=== PATIENT | female | born 1955 | race Caucasian/White ===

== ENCOUNTER 2018-03-04 15:00 | Observation (INO) | payer MEDICARE | END 2018-03-05 11:36 | disposition home or self-care (01) | LOC: ICU 15:00 ==

== ENCOUNTER → 2018-06-19 | Outpatient (CLI) | payer MEDICARE ==
[~2018-06-19] MED LIST: AMLO5TAB9 PO; SIMV20TA3 PO; STL80T PO; TRAZ-189 PO; TRAZ-190 PO; WARF-48 PO
[2018-06-19 10:08] LABS: CHOLESTEROL 194 MG/DL (< 200); HDL CHOLESTEROL 58 MG/DL (40-60); TRIGLYCERIDES 98 MG/DL (<150); VLDL CHOLESTEROL 20 MG/DL (5-40)
== END ==
LOC: LAB 09:25
PROVIDERS: ATTEND Internal Medicine Cardiovascular Disease
DX: E78.00 Pure hypercholesterolemia, unspecified (principal)
CPT/HCPCS: 36415; 80061

== ENCOUNTER 2019-03-15 12:30 | Outpatient (CLI) | payer MEDICARE ==
[~2019-03-15] VITALS: Ht 165.1 cm; Wt 56.8 kg
[~2019-03-15 12:30] MED LIST changes: +SIMV20TA26 PO; -SIMV20TA3 PO; -TRAZ-189 PO; +TRZ50T PO
== END 2019-03-15 14:47 | disposition home or self-care (01) ==
LOC: PREOP 12:30
PROVIDERS: ATTEND Surgery
DX: Z01.818 Encounter for other preprocedural examination (principal)

== ENCOUNTER → 2019-06-17 | Outpatient (CLI) | payer MEDICARE, MEDICAID ==
[~2019-06-17] MED LIST changes: -TRAZ-190 PO; +TRAZ-227 PO
--- NOTE | 2019-06-17 10:04 | Diagnostic Imaging Report ---
Indication: Low back pain Lumbar spine AP and lateral views of lumbar spine shows normal vertebral body height and alignment. Disc spaces are normal. Posterior elements are unremarkable. IMPRESSION: Negative lumbar spine Dictated by: Dictated on workstation # [id number]
== END ==
LOC: RAD FS 09:44
PROVIDERS: ATTEND Nurse Practitioner
DX: M54.5 Low back pain (principal)
CPT/HCPCS: 72100

== ENCOUNTER → 2019-07-08 | Outpatient (CLI) | payer MEDICARE, MEDICAID ==
--- NOTE | 2019-07-08 11:30 | Diagnostic Imaging Report ---
INDICATION: Capsule endoscopy. TIME OF EXAM: 10:36 AM No definite free air is seen. Bowel gas pattern is nonobstructed. No definite radiopaque capsule is seen from capsule endoscopy. There is moderate stool in the right colon and transverse colon. No pathologic calcifications are seen. IMPRESSION: Moderate stool. No foreign body is detected. Dictated by: Dictated on workstation # [id number]
== END ==
LOC: RAD 10:17
DX: I48.0 Paroxysmal atrial fibrillation (principal)
CPT/HCPCS: 74019

== ENCOUNTER 2019-07-15 19:14 | Emergency (ER) | payer MEDICARE, MEDICAID ==
[~2019-07-15] VITALS: Ht 167 cm; Wt 56.0 kg
--- OUTSIDE RECORDS SUMMARY | 2019-07-15 19:19 | XMS REPORT | Continuity of Care Document ---
Author Organization Unknown Address Unknown Phone Unavailable Allergies Active Description Code Type Severity Reaction Onset Reported/Identified Relationship to Patient Clinical Status Yes codeine [id number] Drug Allergy Mild N/A 03/04/2018 Yes diphenhydramine [id number] D rug Allergy Mild N/A 03/04/2018 Yes morphine [id number] Drug Allergy Mild N/A 03/04/2018 Medications There is no data. 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 00 PURE HYPERCHOLESTEROLEMIA, UNSPECIFIED 06/22/2018 DEE DEE TINEO, PRINCESS Dao Ot E78. 00 PURE HYPERCHOLESTEROLEMIA, UNSPECIFIED 03/14/2019 DEE DEE TINEO, PRINCESS Dao Ot E78. 00 PURE HYPERCHOLESTEROLEMIA, UNSPECIFIED 03/15/2019 ROSIO MENDIOLA, [place] B Ot Z01.8 18 ENCOUNTER FOR OTHER PREPROCEDURAL EXAMIN 03/21/2019 DEE DEE TINEO, PRINCESS Dao Ot E78. 00 PURE HYPERCHOLESTEROLEMIA, UNSPECIFIED 03/21/2019 ROSIO M[place], [place] B Ot D12.3 BENIGN NEOPLASM OF TRANSVERSE COLON 03/21/2019 [place] , [place] B Ot D12.4 BENIGN NEOPLASM OF DESCENDING COLON 03/21/2019 [place] , [place] B Ot E78.5 HYPERLIPIDEMIA, UNSPECIFIED 03/21/2019 [place] , [place] B Ot F17.2 10 NICOTINE DEPENDENCE, CIGARETTES, UNCOMPL 03/21/2019 ROSIO MENDIOLA, [place] B Ot I11.0 HYPERTENSIVE HEART DISEASE WITH HEART FA 03/21/2019 TABCHEYENNE MENDIOLA, [place] B Ot I25.1 0 ATHSCL HEART DISEASE OF [place] CORONARY 03/21/2019 [place] , [place] B Ot I48.9 1 UNSPECIFIED ATRIAL FIBRILLATION 03/21/2019 ROSIO MENDIOLA, [place] B Ot I50.9 HEART FAILURE, UNSPECIFIED 03/21/2019 [place] , [place] B Ot K57.3 0 DVRTCLOS OF LG INT W/O PERFORATION OR AB 03/21/2019 ROSIO M[place]A, [place] B Ot K63.5 POLYP OF COLON 03/21/2019 ROSIO MENDI[place]A, [place] B Ot K64.8 OTHER HEMORRHOIDS 03/21/2019 TABCHEYENNE MENDI[place]A, [place] B Ot M19.9 0 UNSPECIFIED OSTEOARTHRITIS, UNSPECIFIED 03/21/2019 [place] , [place] B Ot Z12.1 1 ENCOUNTER FOR SCREENING FOR MALIGNANT NE 03/21/2019 TABCHEYENNE MENDIOLA [place] B Ot Z79.0 1 [place] NET (CURRENT) USE OF ANTICOAGULANT 03/21/2019 TABCHEYENNE DO [place] B Ot Z79.8 2 [place] NET (CURRENT) USE OF ASPIRIN 03/21/2019 TABCHEYENNE , [place] B Ot Z79.8 99 OTHER RESIDENTIAL (CURRENT) DRUG THERAPY 03/21/2019 TABCHEYENNE MENDIOLA, [place] B Ot Z83.3 FAMILY HISTORY OF DIABETES MELLITUS 03/21/2019 ROSIO MENDIOLA, [place] B Ot Z86.7 3 PRSNL HX OF TIA (TIA), AND CEREB INFRC W 03/21/2019 ROSIO MENDIOLA, [place] B Ot Z88.5 ALLERGY STATUS TO NARCOTIC AGENT STATUS 03/21/2019 ROSIO MENDIOLA, [place] B Ot Z88.8 ALLERGY STATUS TO OTH DRUG/MEDS/BIOL SUB 03/21/2019 ROSIO MENDIOLA, [place] B Ot Z90.7 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 00 PURE HYPERCHOLESTEROLEMIA, UNSPECIFIED 06/17/2019 DEE DEE TINEO, PRINCESS Dao Ot E78. 00 PURE HYPERCHOLESTEROLEMIA, UNSPECIFIED 06/21/2019 ANA, KAI Monique APRN Ot M54.5 LOW BACK PAIN 07/08/2019 DEE DEE TINEO, PRINCESS Dao Ot E78. 00 PURE HYPERCHOLESTEROLEMIA, UNSPECIFIED 07/08/2019 ANA, KAI Monique APRN Ot M54.5 LOW BACK PAIN 07/13/2019 DEE DEE TINEO, PRINCESS Dao Ot E78. 00 PURE HYPERCHOLESTEROLEMIA, UNSPECIFIED 07/13/2019 ANA, KAI Monique STUDENT ASSISTANCE COUNSELOR Ot M54.5 LOW BACK PAIN 07/13/2019 OTHER, UNLISTED Ot I48.0 PAROXYSMAL ATRIAL FIBRILLATION 07/14/2019 DEE DEE TINEO, PRINCESS Dao Ot E78. 00 PURE HYPERCHOLESTEROLEMIA, UNSPECIFIED 07/14/2019 ANA, KAI Monique STUDENT ASSISTANCE COUNSELOR Ot M54.5 LOW BACK PAIN 07/14/2019 OTHER, UNLISTED Ot I48.0 PAROXYSMAL ATRIAL FIBRILLATION Procedures There is no data. Results Test Result Range Complete blood count (CBC) with automate d white blood cell (WBC) differential - 03/04/18 16:20 Blood leukocytes automated count (number/volume) 7.5 10*3/uL 4.3-11.0 Blood erythrocytes automated count (number/volume) 4.74 10*6/uL 4.35-5.85 Venous blood hemoglobin measurement (mass/volume) 13.7 g/dL 11.5-16.0 Blood hematocrit (volume fraction) 42 % 35-52 Automated erythrocyte mean corpuscular volume 88 [ foz_us] 80-99 Automated erythrocyte mean corpuscular h emoglobin (mass per erythrocyte) 29 pg 25-34 Automated erythrocyte mean corpuscular h emoglobin concentration measurement (mass/volume) 33 g/dL 32-36 Automated erythrocyte distribution width ratio 17. 5 % 10.0- 14.5 Automated blood platelet count (count/volume) 228 10*3/uL 130-400 Automated blood platelet mean volume measurement 9.5 [foz_us] 7.4-10.4 Automated blood neutrophils/100 leukocytes 80 % 42-75 Automated blood lymphocytes/100 leukocytes 13 % 12-44 Blood monocytes/100 leukocytes 6 % 0-12 Automated blood eosinophils/100 leukocytes 1 % 0-10 Automated blood basophils/100 leukocytes 0 % 0-10 Blood neutrophils automated count (number/volume) 6.0 10*3 1.8-7.8 Blood lymphocytes automated count (number/volume) 1.0 10*3 1.0-4.0 Blood monocytes automated count (number/volume) 0. 4 10*3 0.0-1.0 Automated eosinophil count 0.1 10*3/uL 0 .0-0.3 Automated blood basophil count (count/volume) 0.0 10*3/uL 0.0-0.1 Blood lactic acid measurement (moles/vol ume) - 03/04/18 16:20 Blood lactic acid measurement (moles/volume) 0.59 mmol/L 0.50-2.00 Whole blood basic metabolic panel - 02/10 05/28 16:20 Serum or plasma sodium measurement (moles/volume) 136 mmol/L 135-145 Serum or plasma potassium measurement (moles/volume) 4.5 mmol/L 3.6-5.0 Serum or plasma chloride measurement (moles/volume) 103 mmol/L 98-107 Carbon dioxide 25 mmol/L 21-32 Serum or plasma anion gap determination (moles/volume) 8 mmol/L 5-14 Serum or plasma urea nitrogen measurement (mass/volume ) 8 mg/dL 7-18 Serum or plasma creatinine measurement (mass/volume) 0.66 mg/dL 0.60-1.30 Serum or plasma urea nitrogen/creatinine mass ratio 12 NRG Serum or plasma creatinine measurement w ith calculation of estimated glomerular filtration rate > NRG Serum or plasma glucose measurement (mass/volume) 104 mg/dL 70-105 Serum or plasma calcium measurement (mass/volume) 9.4 mg/dL 8.5-10.1 Serum or plasma phosphate measurement (m ass/volume) - 03/04/18 16:20 Serum or plasma phosphate measurement (mass/volume) 3.5 mg/dL 2.3-4.7 Magnesium - 03/04/18 16:20 Magnesium 2.1 mg/dL 1.8-2.4 Bacterial blood culture - 03/04/18 16:20 Bacterial blood culture NG NRG Bacterial blood culture - 03/04/18 16:25 Bacterial blood culture NG NRG Complete blood count (CBC) with automate d white blood cell (WBC) differential - 03/05/18 03:35 Blood leukocytes automated count (number/volume) 4.7 10*3/uL 4.3-11.0 Blood erythrocytes automated count (number/volume) 4.32 10*6/uL 4.35-5.85 Venous blood hemoglobin measurement (mass/volume) 12.6 g/dL 11.5-16.0 Blood hematocrit (volume fraction) 38 % 35-52 Automated erythrocyte mean corpuscular volume 88 [ foz_us] 80-99 Automated erythrocyte mean corpuscular h emoglobin (mass per erythrocyte) 29 pg 25-34 Automated erythrocyte mean corpuscular h emoglobin concentration measurement (mass/volume) 33 g/dL 32-36 Automated erythrocyte distribution width ratio 17. 6 % 10.0- 14.5 Automated blood platelet count (count/volume) 207 10*3/uL 130-400 Automated blood platelet mean volume measurement 9.4 [foz_us] 7.4-10.4 Automated blood neutrophils/100 leukocytes 68 % 42-75 Automated blood lymphocytes/100 leukocytes 19 % 12-44 Blood monocytes/100 leukocytes 11 % 0-12 Automated blood eosinophils/100 leukocytes 2 % 0-10 Automated blood basophils/100 leukocytes 0 % 0-10 Blood neutrophils automated count (number/volume) 3.2 10*3 1.8-7.8 Blood lymphocytes automated count (number/volume) 0.9 10*3 1.0-4.0 Blood monocytes automated count (number/volume) 0. 5 10*3 0.0-1.0 Automated eosinophil count 0.1 10*3/uL 0 .0-0.3 Automated blood basophil count (count/volume) 0.0 10*3/uL 0.0-0.1 Whole blood basic metabolic panel - 02/10 06/27 03:35 Serum or plasma sodium measurement (moles/volume) 137 mmol/L 135-145 Serum or plasma potassium measurement (moles/volume) 4.3 mmol/L 3.6-5.0 Serum or plasma chloride measurement (moles/volume) 107 mmol/L 98-107 Carbon dioxide 24 mmol/L 21-32 Serum or plasma anion gap determination (moles/volume) 6 mmol/L 5-14 Serum or plasma urea nitrogen measurement (mass/volume ) 8 mg/dL 7-18 Serum or plasma creatinine measurement (mass/volume) 0.61 mg/dL 0.60-1.30 Serum or plasma urea nitrogen/creatinine mass ratio 13 NRG Serum or plasma creatinine measurement w ith calculation of estimated glomerular filtration rate > NRG Serum or plasma glucose measurement (mass/volume) 89 mg/dL 70-105 Serum or plasma calcium measurement (mass/volume) 8.9 mg/dL 8.5-10.1 Serum or plasma phosphate measurement (m ass/volume) - 03/05/18 03:35 Serum or plasma phosphate measurement (mass/volume) 3.7 mg/dL 2.3-4.7 Magnesium - 03/05/18 03:35 Magnesium 2.1 mg/dL 1.8-2.4 PT panel in platelet poor plasma by coag ulation assay - 03/05/18 03:35 Prothrombin time (PT) in platelet poor plasma by coagu lation assay 32.6 s 12.2-14.7 INR in platelet poor plasma or blood by coagulation as say 3.2 0.8-1.4 Lipid 1996 panel - 06/19/18 09:37 Serum or plasma triglyceride measurement (mass/volume) 98 mg/dL <150 Serum or plasma cholesterol measurement (mass/volume) 194 mg/dL < 200 Serum or plasma cholesterol in HDL measurement (mass/v olume) 58 mg/dL 40-60 Cholesterol in LDL [mass/volume] in serum or plasma by direct assay 118 mg/dL 1-129 Serum or plasma cholesterol in VLDL measurement (mass/ volume) 20 mg/dL 5-40 LIPID PANEL - 12/08/18 08:47 CHOLESTEROL, TOTAL 174 mg/dL <200 HDL CHOLESTEROL 57 mg/dL >50 TRIGLYCERIDES 108 mg/dL <150 LDL-CHOLESTEROL 97 mg/dL (calc) NRG CHOL/HDLC RATIO 3.1 (calc) <5.0 NON HDL CHOLESTEROL 117 mg/dL (calc) <13 0 CMP - 12/08/18 08:47 GLUCOSE 78 mg/dL 65-99 UREA NITROGEN (BUN) 11 mg/dL 7-25 CREATININE 0.63 mg/dL 0.50-0.99 eGFR NON-AFR. [place] 97 mL/min/1.73m2 > OR = 60 eGFR 112 mL/min/1.73m2 > OR = 60 BUN/CREATININE RATIO NOT APPLICABLE (calc) 6-22 SODIUM 132 mmol/L 135-146 POTASSIUM 4.2 mmol/L 3.5-5.3 CHLORIDE 95 mmol/L 98-110 CARBON DIOXIDE 27 mmol/L 20-32 CALCIUM 9.4 mg/dL 8.6-10.4 PROTEIN, TOTAL 6.4 g/dL 6.1-8.1 ALBUMIN 4.2 g/dL 3.6-5.1 GLOBULIN 2.2 g/dL (calc) 1.9-3.7 ALBUMIN/GLOBULIN RATIO 1.9 (calc) 1.0-2. 5 BILIRUBIN, TOTAL 0.5 mg/dL 0.2-1.2 ALKALINE PHOSPHATASE 79 U/L 33-130 AST 25 U/L 10-35 ALT 22 U/L 6-29 CBC - 12/08/18 08:47 WHITE BLOOD CELL COUNT 5.9 Thousand/uL 3 .8-10.8 RED BLOOD CELL COUNT 4.59 Million/uL 3.8 0-5.10 HEMOGLOBIN 14.5 g/dL 11.7-15.5 HEMATOCRIT 43.1 % 35.0-45.0 MCV 93.9 fL 80.0-100.0 MCH 31.6 pg 27.0-33.0 MCHC 33.6 g/dL 32.0-36.0 RDW 15.1 % 11.0-15.0 PLATELET COUNT 289 Thousand/uL 140-400 MPV 9.5 fL 7.5-12.5 ABSOLUTE NEUTROPHILS 4213 cells/uL 1500- 7800 ABSOLUTE LYMPHOCYTES 920 cells/uL 850-39 00 ABSOLUTE MONOCYTES 507 cells/uL 200-950 ABSOLUTE EOSINOPHILS 212 cells/uL 15-500 ABSOLUTE BASOPHILS 47 cells/uL 0-200 NEUTROPHILS 71.4 % NRG LYMPHOCYTES 15.6 % NRG MONOCYTES 8.6 % NRG EOSINOPHILS 3.6 % NRG BASOPHILS 0.8 % NRG COVID-19 ([facility]) - 06/14/19 15:42 A1C - 06/17/19 10:22 HEMOGLOBIN A1c 5.0 % of total Hgb <5.7 VITAMIN B12/FOLATE, SERUM PANEL - 10:24 VITAMIN B12 536 pg/mL 200-1100 FOLATE, SERUM >24.0 ng/mL NRG LIPID PANEL - 06/20/19 09:31 CHOLESTEROL, TOTAL 183 mg/dL <200 HDL CHOLESTEROL 59 mg/dL > OR = 50 TRIGLYCERIDES 90 mg/dL <150 LDL-CHOLESTEROL 106 mg/dL (calc) NRG CHOL/HDLC RATIO 3.1 (calc) <5.0 NON HDL CHOLESTEROL 124 mg/dL (calc) <13 0 TEST AUTHORIZATION - 06/20/19 09:31 TEST NAME: IRON, TIBC AND FERRITIN PANEL NRG TEST CODE: [id number] NRG CLIENT CONTACT: ALEX SESAY NRG REPORT ALWAYS MESSAGE SIGNATURE NRG COMMENT NRG Encounters ACCT No. Visit Date/Time Discharge Status Pt. Type Provider Facility Loc./Unit Complaint [id number] 03/07/2019 08:40:00 03/07/2019 23:59: 59 [facility] [id number] 06/20/2019 08:15:00 Document Registration [id number] 06/17/2019 08:40:00 Document Registration [id number] 06/14/2019 15:30:00 Document Registration [id number] 12/08/2018 08:45:00 Document Registration [id number] 07/08/2019 10:17:00 23:59:59 CLS Outpatient OTHER, UNLISTED [facility] RAD PAROXYSMAL ATRIAL FIBRI LLATION [id number] 06/17/2019 09:44:00 23:59:59 CLS Outpatient KAI PEREZ STUDENT ASSISTANCE COUNSELOR Via [facility] RAD FS [place] [id number] 03/21/2019 07:44:00 10:50:00 DIS Outpatient [place] AVELAR DO Via [facility] ENDO SCREENING [id number] 03/15/2019 12:30:00 14:47:00 DIS Outpatient [place] AVELAR DO Via [facility] PREOP COLONOSCOPY [id number] 06/19/2018 09:25:00 23:59:59 CLS Outpatient PRINCESS FUNEZ MD Via [facility] LAB PURE HYPERCHOLESTEROLEM IA [id number] 03/04/2018 15:00:00 12:20:00 DIS Inpatient PHILLIP JOVEL DO, [facility] ICU SEIZURE
--- NOTE | 2019-07-15 19:37 | ED Cardiac General ---
History of Present Illness General Chief Complaint: Chest Pain Stated Complaint: CHEST PAIN,HIGH HEART RATE Nursing Triage Note: Pt states she has had chest pain all day and feels like her heart is racing. Source: patient Exam Limitations: no limitations History of Present Illness Date Seen by Provider: Jul 15, 2019 Time Seen by Provider: 18:45 Initial Comments Patient presents with complaint of rapid heart rate over the last 3 days. States that she has history of atrial fibrillation and was recently cardioverted one week ago at [facility], Dr. Watson. She was also started on Tikosyn. She denies chest pain or shortness of air, states she just feels like her heart rate is fast although she checked her heart rate and it's been in the 80s. Admit she's been cardioverted 4 times in the past and feels better afterwards. Also has a history of mechanical heart valve. Follow closely cardiology. Was just worried that her heart rate may be fast today. On Coumadin for anticoagulation. Allergies and Home Medications Allergies Coded Allergies: codeine (Verified Allergy, Mild, 03/04/18) diphenhydramine (Verified Allergy, Mild, 03/04/18) morphine (Verified Allergy, Mild, 03/04/18) Home Medications Amlodipine Besylate 5 Mg Tablet, 10 MG PO DAILY Prescribed by: PHILLIP JOVEL on 03/05/18 1135 Simvastatin 20 Mg Tablet, 20 MG PO HS, (Reported) Sotalol HCl 80 Mg Tablet, 80 MG PO BID, (Reported) Trazodone HCl 100 Mg Tablet, 50 MG PO HS, (Reported) TAKES 1/2 (100MG) TABLET Warfarin Sodium 5 Mg Tablet, 5 MG PO DAILY, (Reported) Patient Home Medication List Home Medication List Reviewed: Yes Review of Systems Review of Systems Constitutional: No no symptoms reported; see HPI; No chills, No diaphoresis, No dizziness, No fever, No malaise, No weakness, No weight gain, No weight loss, No other Respiratory: Denies Cough, Denies Orthopnea, Denies Shortness of Air, Denies Stridor, Denies Wheezing Cardiovascular: See HPI; Denies Chest Pain, Denies Edema; Irregular Heart Rate; Denies Lightheadedness; Palpitations; Denies Syncope Gastrointestinal: Denies Abdominal Pain, Denies Nausea, Denies Poor Appetite, Denies Vomiting Musculoskeletal: No back pain, No joint pain Psychiatric/Neurological: Denies Anxiety, Denies Depressed Past Xnufugf-Ntcbej-Kktpaf Hx Past Med/Social Hx: Reviewed Nursing Past Med/Soc Hx Patient Social History Type Used: Cigarettes 2nd Hand Smoke Exposure: No Recent Foreign Travel: No Contact w/Someone Who Travel: No Recent Infectious Disease Expo: No Recent Hopitalizations: No Physical Abuse: No Sexual Abuse: No Mistreated: No Fear: No Immunizations Up To Date Date of Pneumonia Vaccine: Dec 02, 2017 Date of Influenza Vaccine: Dec 02, 2017 Seasonal Allergies Seasonal Allergies: Yes Past Medical History Surgeries: Yes (c/s x2) Cardiac, Coronary Stent, Hysterectomy, Oophorectomy, Pacemaker, Valve Replacement Respiratory: No Currently Using CPAP: No Currently Using BIPAP: No Cardiac: Yes (pacemaker) Atrial Fibrillation, Cardiomyopathy, Chronic Edema/Swelling, Valvular Heart Disease Neurological: Yes Stroke 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 0.0oz. 57.512188tq; 20.00 BMI Method: General Appearance: No Apparent Distress Neck: Non Tender, Supple Respiratory: Chest Non Tender, Lungs Clear, No Accessory Muscle Use, No Respiratory Distress Cardiovascular: No Edema, No JVD, Systolic Murmur, Irregularly Irregular Gastrointestinal: Non Tender, Soft; No Distended, No Guarding Neurologic/Psychiatric: Alert, Oriented x3, Normal Mood/Affect Skin: Normal Color, Warm/Dry Progress/Results/Core Measures Results/Orders Vital Signs/I&O 07/15/19 19:32 Temp 36.2 Pulse 75 Resp 16 B/P (MAP) 117/53 (74) Pulse Ox 100 O2 Delivery Room Air Blood Pressure Mean: 74 Progress Progress Note : Progress Note Patient well-appearing and in no distress, states she just one to see if her rate was rapid and if she needed to be cardioverted. Reassurance given, she declines any further evaluation including lab work or chest x-ray. Advised cardiology clinic to let them know she is back in atrial fibrillation and to see what they wanted to his father's further treatment or evaluation. Patient agrees and understands, she'll follow up with any of her symptoms progress. Initial ECG Impression Time: 18:45 Initial ECG Rate: 80 Initial ECG Rhythm: A Fib/Flutter Initial ECG Impression: Atrial Fibrillation Initial ECG Comparisson: No Previous ECG Available Departure Impression Primary Impression: Atrial fibrillation, controlled Disposition: 01 HOME, SELF-CARE Condition: Stable Departure-Patient Inst. Decision time for Depature: 19:35 Referrals: [facility]/K (PCP/Family) Primary Care Physician Patient Instructions: Atrial Fibrillation (DC) Add. Discharge Instructions: Call Dr Watson regarding your atrial fibrillation to get direction of further evaluation. If you are having chest pain, shortness of air or hour heart rate is staying greater than 100, you should call 911 or go to the nearest ER. All discharge instructions reviewed with patient and/or family. Voiced u nderstanding. PRINCESS LENTZ DO Jul 15, 2019 19:37
[2019-07-15 19:41] VITALS: BP 117/53
== END 2019-07-15 19:44 | disposition home or self-care (01) ==
LOC: EDUNIT# 19:14 → ER FS 19:15
DX: I48.91 Unspecified atrial fibrillation (principal); I42.9 Cardiomyopathy, unspecified; Z88.5 Allergy status to narcotic agent; Z88.8 Allergy status to other drugs, medicaments and biological substances; Z79.01 Long term (current) use of anticoagulants; Z95.5 Presence of coronary angioplasty implant and graft; Z95.0 Presence of cardiac pacemaker; Z86.73 Personal history of transient ischemic attack (TIA), and cerebral infarction without residual deficits

== ENCOUNTER 2019-07-17 09:42 | Emergency (ER) | payer MEDICARE, MEDICAID ==
[~2019-07-17] VITALS: Ht 167.7 cm; Wt 56.8 kg
--- OUTSIDE RECORDS SUMMARY | 2019-07-17 09:47 | XMS REPORT | Continuity of Care Document ---
Author Organization Unknown Address Unknown Phone Unavailable Allergies Active Description Code Type Severity Reaction Onset Reported/Identified Relationship to Patient Clinical Status Yes codeine [id number] Drug Allergy Mild N/A 03/04/2018 Yes diphenhydramine [id number] D rug Allergy Mild N/A 03/04/2018 Yes morphine [id number] Drug Allergy Mild N/A 03/04/2018 Medications There [...] COLLAPSE 03/05/2018 PHILLIP JOVEL DO Ot Z79.01 ROTARY SHEAR CUTTER (CURRENT) USE OF ANTICOAGULANT 03/05/2018 PHILLIP JOVEL DO Ot Z79.89 9 OTHER FPC (CURRENT) DRUG THERAPY 03/05/2018 PHILLIP JOVEL DO [...] D12.3 BENIGN NEOPLASM OF TRANSVERSE COLON 03/21/2019 [place] , [place] B Ot D12.4 BENIGN NEOPLASM OF DESCENDING COLON 03/21/2019 [place] , [place] B Ot E78.5 HYPERLIPIDEMIA, UNSPECIFIED 03/21/2019 [place] , [place] B Ot F17.2 10 NICOTINE DEPENDENCE, CIGARETTES, UNCOMPL 03/21/2019 ROSIO MENDIOLA, [place] B Ot I11.0 HYPERTENSIVE HEART DISEASE WITH HEART FA 03/21/2019 TABCHEYENNE MENDIOLA, [place] B Ot I25.1 0 ATHSCL HEART DISEASE OF [place] CORONARY 03/21/2019 [place] , [place] B Ot I48.9 1 UNSPECIFIED ATRIAL FIBRILLATION 03/21/2019 ROSIO MENDIOLA, [place] B Ot I50.9 HEART FAILURE, UNSPECIFIED 03/21/2019 [place] , [place] B Ot K57.3 0 DVRTCLOS OF LG INT W/O PERFORATION OR AB 03/21/2019 ROSIO MENDI[place], [place] B Ot K63.5 POLYP OF COLON 03/21/2019 ROSIO MENDIOLA, [place] B Ot K64.8 OTHER HEMORRHOIDS 03/21/2019 TABCHEYENNE MENDI[place]A, [place] B Ot M19.9 0 UNSPECIFIED OSTEOARTHRITIS, UNSPECIFIED 03/21/2019 [place] , [place] B Ot Z12.1 1 ENCOUNTER FOR SCREENING FOR MALIGNANT NE 03/21/2019 TABCHEYENNE MENDIOLA [place] B Ot Z79.0 1 ROTARY SHEAR CUTTER (CURRENT) USE OF ANTICOAGULANT 03/21/2019 TABCHEYENNE DO [place] B Ot Z79.8 2 ROTARY SHEAR CUTTER (CURRENT) USE OF ASPIRIN 03/21/2019 TABC[place] , [place] B Ot Z79.8 99 OTHER FPC (CURRENT) DRUG THERAPY 03/21/2019 TABCHEYENNE MENDIOLA, [place] B Ot Z83.3 FAMILY HISTORY OF DIABETES MELLITUS 03/21/2019 ROISO MENDIOLA, [place] B Ot Z86.7 3 PRSNL [...] PURE HYPERCHOLESTEROLEMIA, UNSPECIFIED 07/13/2019 ANA, KAI Monique TODDLER NANNY Ot M54.5 LOW BACK PAIN 07/13/2019 OTHER, UNLISTED Ot I48.0 PAROXYSMAL ATRIAL FIBRILLATION 07/14/2019 DEE DEE TINEO, PRINCESS Dao Ot E78. 00 PURE HYPERCHOLESTEROLEMIA, UNSPECIFIED 07/14/2019 ANA, KAI Monique TODDLER NANNY Ot M54.5 LOW BACK PAIN 07/14/2019 OTHER, [...] 7-25 CREATININE 0.63 mg/dL 0.50-0.99 eGFR NON-AFR. ANDORRAN 97 mL/min/1.73m2 > OR = 60 eGFR [...] Status Pt. Type Provider Facility Loc./Unit Complaint [id number] 03/07/2019 08:40:00 03/07/2019 23:59: 59 [facility] [id number] 06/20/2019 08:15:00 Document Registration [id number] 06/17/2019 08:40:00 Document Registration [id number] 06/14/2019 15:30:00 Document Registration [id number] 12/08/2018 08:45:00 Document Registration [id number] 07/08/2019 10:17:00 23:59:59 CLS Outpatient OTHER, UNLISTED V ia [facility] RAD PAROXYSMAL ATRIAL FIBRI LLATION [id number] 06/17/2019 09:44:00 23:59:59 CLS Outpatient KAI PEREZ TODDLER NANNY Via [facility] RAD FS [place] [id number] 03/21/2019 07:44:00 10:50:00 DIS Outpatient VIRGINIA AVELAR DO Via [facility] ENDO SCREENING [id number] 03/15/2019 12:30:00 14:47:00 DIS Outpatient VIRGINIA AVELAR DO Via [facility] PREOP COLONOSCOPY [id number] 06/19/2018 09:25:00 23:59:59 CLS Outpatient PRINCESS FUNEZ MD Via [facility] LAB PURE HYPERCHOLESTEROLEM IA [id number] 03/04/2018 15:00:00 12:20:00 DIS Inpatient PHILLIP JOVEL DO, V [facility] ICU SEIZURE
--- NOTE | 2019-07-17 09:54 | ED Cardiac General ---
History of Present Illness General Chief Complaint: Cardiac/General Problems Stated Complaint: SOA,AFIB Source: patient, RN/MD, EMS, RN notes reviewed, EMS notes reviewed, old records Exam Limitations: no limitations History of Present Illness Date Seen by Provider: Jul 17, 2019 Time Seen by Provider: 09:45 Initial Comments This patient is a 63-year-old female presents to the emergency department complaining of chest pressure. Patient has a long history of atrial fibrillation and was up and [facility] last week and had a cardioversion done by cardiology. Patient says was seen here on Thursday 2 days ago for the same complaints and EKG and at that time was in A. fib. Patient appears to be continu ed in A. formerly [facility] at this time heart rate in the mid 70s to 80s. Patient states she just hasn't felt well since this cardioversion has taken place. Patient states she tries to get up and mainly she feels chest pressure. Patient is requesting be transferred to [facility]. We'll do medical evaluation treatment is needed. Timing/Duration: 1 week, constant Severity: moderate Location: central Activities at Onset: activity Prior CP/Workup: echocardiography, heart attack Associated Systoms: Chest Pain, Shortness of Air, Weakness Allergies and Home Medications Allergies Coded Allergies: codeine (Verified Allergy, Mild, 03/04/18) diphenhydramine (Verified Allergy, Mild, 03/04/18) morphine (Verified Allergy, Mild, 03/04/18) Home Medications Amlodipine Besylate 5 Mg Tablet, 10 MG PO DAILY Prescribed by: PHILLIP JOVEL on 03/05/18 1135 Simvastatin 20 Mg Tablet, 20 MG PO HS, (Reported) Sotalol HCl 80 Mg Tablet, 80 MG PO BID, (Reported) Trazodone HCl 100 Mg Tablet, 50 MG PO HS, (Reported) TAKES 1/2 (100MG) TABLET Warfarin Sodium 5 Mg Tablet, 5 MG PO DAILY, (Reported) Patient Home Medication List Home Medication List Reviewed: Yes Review of Systems Review of Systems Constitutional: No no symptoms reported; see HPI; No chills, No diaphoresis, No dizziness, No fever, No malaise; weakness; No weight gain, No weight loss, No other EENTM: No No Symptoms Reported, No See HPI, No Blurred Vision, No Double Vision, No Eye Pain, No Eye Tearing, No Ear Drainage, No Ear Pain, No Mouth Pain, No Mouth Swelling, No Nose Congestion, No Nose Pain, No Throat Pain, No Throat Swelling, No Other Respiratory: See HPI, Orthopnea, SOA With Exertion Cardiovascular: Denies No Symptoms Reported; See HPI, Chest Pain; Denies Edema, Denies Irregular Heart Rate, Denies Lightheadedness, Denies Palpitations, Denies Syncope, Denies Other Gastrointestinal: Denies No Symptoms Reported, Denies See HPI, Denies Abdomen Distended, Denies Abdominal Pain, Denies Blood Streaked Stools, Denies Constipated, Denies Diarrhea, Denies Difficulty Swallowing, Denies Nausea, Denies Poor Appetite, Denies Poor Fluid Intake, Denies Rectal Bleeding, Denies Vomiting, Denies Other Musculoskeletal: No no symptoms reported, No see HPI, No back pain, No gout, No joint pain, No joint swelling, No muscle pain, No muscle stiffness, No muscle cramps, No muscle twitching, No muscle weakness, No neck pain, No other Skin: No no symptoms reported, No see HPI, No change in color, No change in hair/nails, No dryness, No hx of skin cancer, No lesions, No lumps, No pruritus, No rash, No other All Other Systems Reviewed Negative Unless Noted: Yes Past Axmyjnv-Tmnmpr-Isnxsv Hx Patient Social History Type Used: Cigarettes 2nd Hand Smoke Exposure: No Recent Hopitalizations: Yes Immunizations Up To Date Date of Pneumonia Vaccine: Dec 02, 2017 Date of Influenza Vaccine: Dec 02, 2017 Seasonal Allergies Seasonal Allergies: No Past Medical History Surgeries: Yes Cardiac, Coronary Stent, Hysterectomy, Oophorectomy, Pacemaker, Valve Replacement Respiratory: No Currently Using CPAP: No Currently Using BIPAP: No Cardiac: Yes (SINUS NODE DYSFUNCTION) Atrial Fibrillation, Coronary Artery Disease, Hypertension Neurological: Yes Neuropathy 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 0.0oz. [id number]; 20.00 BMI Method: General Appearance: No Apparent Distress, WD/WN HEENT: PERRL/EOMI, TMs Normal, Normal ENT Inspection, Pharynx Normal Neck: Full Range of Motion, Normal Inspection, Non Tender Respiratory: Chest Non Tender, Lungs Clear, Normal Breath Sounds, No Accessory Muscle Use, No Respiratory Distress Cardiovascular: Regular Rate, Rhythm, No Edema, No Gallop, No JVD, No Murmur, Normal Peripheral Pulses Gastrointestinal: Normal Bowel Sounds, No Organomegaly, No Pulsatile Mass, Non Tender Extremity: Normal Capillary Refill, Normal Inspection, Normal Range of Motion, Non Tender, No Calf Tenderness, No Pedal Edema Neurologic/Psychiatric: Alert, Oriented x3, No Motor/Sensory Deficits, Normal Mood/Affect Skin: Normal Color, Warm/Dry Progress/Results/Core Measures Results/Orders Lab Results Laboratory Tests Test 07/17/19 10:03 07/17/19 10:55 Range/Units White Blood Count 6.6 4.3-11.0 10^3/uL Red Blood Count 1.61 L 4.35-5.85 10^6/uL Hemoglobin 4.7 *L 11.5-16.0 G/DL Hematocrit 16 *L 35-52 % Mean Corpuscular Volume 96 80-99 FL Mean Corpuscular Hemoglobin 29 25-34 PG Mean Corpuscular Hemoglobin Concent 30 L 32-36 G/DL Red Cell Distribution Width 16.5 H 10.0-14.5 % Platelet Count 257 130-400 10^3/uL Mean Platelet Volume 9.6 7.4-10.4 FL Neutrophils (%) (Auto) 82 H 42-75 % Lymphocytes (%) (Auto) 9 L 12-44 % Monocytes (%) (Auto) 8 0-12 % Eosinophils (%) (Auto) 0 0-10 % Basophils (%) (Auto) 0 0-10 % Neutrophils # (Auto) 5.4 1.8-7.8 X 10^3 Lymphocytes # (Auto) 0.6 L 1.0-4.0 X 10^3 Monocytes # (Auto) 0.5 0.0-1.0 X 10^3 Eosinophils # (Auto) 0.0 0.0-0.3 10^3/uL Basophils # (Auto) 0.0 0.0-0.1 10^3/uL Prothrombin Time 27.8 H 12.2-14.7 SEC INR Comment 2.6 H 0.8-1.4 D-Dimer 0.18 0.00-0.49 UG/ML Sodium Level 133 L 135-145 MMOL/L Potassium Level 4.6 3.6-5.0 MMOL/L Chloride Level 100 98-107 MMOL/L Carbon Dioxide Level 21 21-32 MMOL/L Anion Gap 12 5-14 MMOL/L Blood Urea Nitrogen 9 7-18 MG/DL Creatinine 0.59 L 0.60-1.30 MG/DL Estimat Glomerular Filtration Rate > 60 BUN/Creatinine Ratio 15 Glucose Level 115 H 70-105 MG/DL Calcium Level 8.2 L 8.5-10.1 MG/DL Corrected Calcium 8.8 8.5-10.1 MG/DL Total Bilirubin 0.2 0.1-1.0 MG/DL Aspartate Amino Transf (AST/SGOT) 27 5-34 U/L Alanine Aminotransferase (ALT/SGPT) 23 0-55 U/L Alkaline Phosphatase 41 40-136 U/L Troponin I < 0.30 <0.30 NG/ML Pro-B-Type Natriuretic Peptide 3739.0 H <75.0 PG/ML Total Protein 4.9 L 6.4-8.2 GM/DL Albumin 3.2 3.2-4.5 GM/DL Urine Color YELLOW Urine Clarity CLEAR Urine pH 7.0 5-9 Urine Specific [place] 1.010 L 1.016-1.022 Urine Protein NEGATIVE NEGATIVE Urine Glucose (UA) NEGATIVE NEGATIVE Urine Ketones NEGATIVE NEGATIVE Urine Nitrite NEGATIVE NEGATIVE Urine Bilirubin NEGATIVE NEGATIVE Urine Urobilinogen 0.2 < = 1.0 MG/DL Urine Leukocyte Esterase 1+ H NEGATIVE Urine RBC (Auto) NEGATIVE NEGATIVE Urine RBC NONE /HPF Urine WBC 0-2 /HPF Urine Squamous Epithelial Cells 0-2 /HPF Urine Crystals NONE /LPF Urine Bacteria NEGATIVE /HPF Urine Casts PRESENT /LPF Urine Hyaline Casts 0-2 H /LPF Urine Mucus NEGATIVE /LPF Urine Culture Indicated NO My Orders Orders - JOSE DELCID MD Ed Iv/Invasive Line Start (07/17/19 09:51) Orthostatic Vital Signs (Adult (07/17/19 09:51) Cbc With Automated Diff (07/17/19 09:51) Comprehensive Metabolic Panel (07/17/19 09:51) Troponin I Fs (07/17/19 09:51) Urinalysis (07/17/19 09:51) Protime With Inr (07/17/19 09:51) Probnp Fs (07/17/19 09:51) Ekg Tracing (07/17/19 09:51) Chest 1 View Ap/Pa Only (07/17/19 09:51) Fibrin Degradation Products (07/17/19 09:55) Occult Blood Stool (07/17/19 10:31) Vital Signs/I&O 07/17/19 07/17/19 09:50 11:05 Temp 36.5 Pulse 90 71 81 100 Resp 15 B/P (MAP) 116/50 (72) 115/34 (61) 114/41 (65) 97/72 (80) Pulse Ox 100 O2 Delivery Room Air Progress Progress Note : Time: 11:25 Progress Note Patient has profound anemia H&H's 4 and 16. I did discuss at length with Dr. Matson [facility] he is accepted this patient for transfer. Patient be transferred to their facility as soon as possible we'll have a type and cross and transfusion upon arrival. Type cross and transfusion unavailable at this facility. Patient states understanding and agrees. Initial ECG Impression Date: Jul 17, 2019 Initial ECG Impression Time: 10:12 Initial ECG Rate: 76 Initial ECG Rhythm: A Fib/Flutter Initial ECG Impression: Normal Comment Atrial fibrillation with left bundle branch block heart rate 76. Is a chronic EKG for this patient. Departure Impression Primary Impression: Acute anemia Additional Impressions: Orthostatic hypotension Exertional dyspnea Chronic atrial fibrillation Disposition: XF SHT-TRM HOSP Condition: Stable Transfer Transfer Reason: Exceeds level of care Time Spoke to Accepting Phy: 11:26 Transfer Progress Notes I did discuss at length with Dr. Matson [facility] he is accepted this patient for transfer. Patient be transferred to their facility as soon as possible we'll have a type and cross and transfusion upon arrival Transfer Time: 11:26 Transfer Facility: [facility] Method of Transfer: EMS Departure-Patient Inst. Decision time for Depature: 11:27 Referrals: [facility] [place] Primary Care Physician JOSE DELCID MD Jul 17, 2019 09:54
[2019-07-17 10:22] LABS: WHITE BLOOD COUNT 6.6 10^3/uL (4.3-11.0)
[2019-07-17 10:23] LABS: HEMATOCRIT 16 % (35-52); HEMOGLOBIN 4.7 G/DL (11.5-16.0); MEAN CORPUSCULAR HEMOGLOBIN 29 PG (25-34); MEAN CORPUSCULAR HGB CONC 30 G/DL (32-36); MEAN CORPUSCULAR VOLUME 96 FL (80-99); MEAN PLATELET VOLUME 9.6 FL (7.4-10.4); PLATELET COUNT 257 10^3/uL (130-400); RED CELL DISTRIBUTION WIDTH 16.5 % (10.0-14.5)
[2019-07-17 10:24] LABS: BASOPHILS % (AUTO) 0 % (0-10); EOSINOPHILS % (AUTO) 0 % (0-10); LYMPHOCYTES # (AUTO) 0.6 X 10^3 (1.0-4.0); LYMPHOCYTES % (AUTO) 9 % (12-44); MONOCYTES # (AUTO) 0.5 X 10^3 (0.0-1.0); MONOCYTES % (AUTO) 8 % (0-12); NEUTROPHILS # (AUTO) 5.4 X 10^3 (1.8-7.8); NEUTROPHILS % (AUTO) 82 % (42-75)
[2019-07-17 10:52] LABS: BUN/CREATININE RATIO 15; CALCIUM 8.2 MG/DL (8.5-10.1); CARBON DIOXIDE 21 MMOL/L (21-32); CHLORIDE 100 MMOL/L (98-107); CREATININE SERUM 0.59 MG/DL (0.60-1.30); GFR ESTIMATED > 60; GLUCOSE 115 MG/DL (70-105); POTASSIUM 4.6 MMOL/L (3.6-5.0); SODIUM 133 MMOL/L (135-145)
[2019-07-17 10:53] LABS: ALANINE AMINOTRANSFERASE 23 U/L (0-55); ALBUMIN 3.2 GM/DL (3.2-4.5); ALKALINE PHOSPHATASE 41 U/L (40-136); BILIRUBIN,TOTAL 0.2 MG/DL (0.1-1.0); TOTAL PROTEIN 4.9 GM/DL (6.4-8.2)
[2019-07-17 10:54] LABS: FIBRIN DEGRADATION PRODUCTS 0.18 UG/ML (0.00-0.49); INR 2.6 (0.8-1.4); PROTHROMBIN TIME PATIENT 27.8 SEC (12.2-14.7)
[2019-07-17 11:05] VITALS: BP_SYST 114; BP_SYST 115; BP_SYST 97; BP_DIAS 34; BP_DIAS 41; BP_DIAS 72
[2019-07-17 11:15] LABS: CLARITY,URINE CLEAR; COLOR,URINE YELLOW
[2019-07-17 11:16] LABS: BACTERIA,URINE NEGATIVE /HPF; BILIRUBIN,URINE NEGATIVE (NEGATIVE); GLUCOSE, URINE (UA) NEGATIVE (NEGATIVE); HYALINE CASTS, URINE 0-2 /LPF; KETONES,URINE NEGATIVE (NEGATIVE); LEUKOCYTE ESTERASE ,URINE 1+ (NEGATIVE); NITRITE,URINE NEGATIVE (NEGATIVE); PROTEIN,URINE NEGATIVE (NEGATIVE); SQUAMOUS EPITHELIAL CELL,UR 0-2 /HPF; WBC,URINE 0-2 /HPF
--- NOTE | 2019-07-17 11:18 | Diagnostic Imaging Report ---
EXAMINATION: Chest radiograph, portable AP view. DATE: 07/17/2019 10:26 AM hours. INDICATION: 63-year-old female, shortness of breath. COMPARISON: March 05, 2018. FINDINGS: There are median sternotomy wires. There is a left-sided cardiac assist device with leads. Stable overall appearance of the cardiomediastinal silhouette. There is no identified pneumothorax. There is no large pleural effusion. There are coarse lung markings likely reflecting chronic lung changes. There is no identified interval focal airspace consolidation. IMPRESSION: 1. Findings of chronic lung disease without identified interval acute cardiopulmonary abnormality. Dictated by: Dictated on workstation # [id number]
--- NOTE | 2019-07-17 11:20 | NUR ---
Digital exam of rectum with Occult testing performed. Scant dk color stool on glove. The fecal occult blood test was positive with a fainter test line obviously noted.
--- NOTE | 2019-07-17 11:42 | NUR ---
Report to Tayler PUGA at [facility] for pt assignment [id number].
--- NOTE | 2019-07-17 11:45 | NUR ---
EMS notified of transfer
[2019-07-17 12:22] VITALS: BP 96/47
--- NOTE | 2019-07-17 12:22 | NUR ---
Called [facility] transfer center with departure and ETA. Pt's contact was notified of time of patient depart as agreed upon by patient for this nurse to release this info. The contact is communicating with her daughter.
--- NOTE | 2019-07-17 12:22 | NUR ---
Patient departing for [facility] on [facility] at this time. Pt remains alert and oriented and appropriately answering questions. Pt remains in A Fib 70-80's controlled rate. O2 remains on at 2 L/m with SaO2 100% and pt reporting "feeling much better with breathing". SL intact R AC 18 ga and is patent with blood flash when flushing prior to departure.
== END 2019-07-17 12:22 | disposition short-term general hospital (02) ==
LOC: EDUNIT# 09:42 → ER FS 09:43
DX: D50.9 Iron deficiency anemia, unspecified (principal); I95.1 Orthostatic hypotension; R06.09 Other forms of dyspnea; I48.20 Chronic atrial fibrillation, unspecified; I10 Essential (primary) hypertension; I25.10 Atherosclerotic heart disease of native coronary artery without angina pectoris; Z88.5 Allergy status to narcotic agent; Z88.8 Allergy status to other drugs, medicaments and biological substances; Z79.01 Long term (current) use of anticoagulants; Z95.5 Presence of coronary angioplasty implant and graft
CPT/HCPCS: 36415; 71045; 80053; 81000; 82274; 83880; 84484; 85025; 85379; 85610; 93005

== ENCOUNTER 2019-08-10 05:51 | Emergency (ER) | payer MEDICARE, MEDICAID ==
[~2019-08-10] VITALS: Ht 167.7 cm; Wt 56.2 kg
--- OUTSIDE RECORDS SUMMARY | 2019-08-10 05:57 | XMS REPORT | Continuity of Care Document ---
Author Organization Unknown Address Unknown Phone Unavailable Allergies Active Description Code Type Severity Reaction Onset Reported/Identified Relationship to Patient Clinical Status Yes codeine [id number] Drug Allergy Mild N/A 03/04/2018 Yes diphenhydramine [id number] D rug Allergy Mild N/A 03/04/2018 Yes morphine [id number] Drug Allergy Mild N/A 03/04/2018 Medications There [...] COLLAPSE 03/05/2018 PHILLIP JOVEL DO Ot Z79.01 SPIRITUAL COUNSELOR (CURRENT) USE OF ANTICOAGULANT 03/05/2018 PHILLIP JOVEL DO Ot Z79.89 9 OTHER SNF (CURRENT) DRUG THERAPY 03/05/2018 PHILLIP JOVEL DO [...] D12.3 BENIGN NEOPLASM OF TRANSVERSE COLON 03/21/2019 [place] , [place] B Ot D12.4 BENIGN NEOPLASM OF DESCENDING COLON 03/21/2019 [place] B Ot E78.5 HYPERLIPIDEMIA, UNSPECIFIED 03/21/2019 [place] , [place] B Ot F17.2 10 NICOTINE DEPENDENCE, CIGARETTES, UNCOMPL 03/21/2019 [place], [place] B Ot I11.0 HYPERTENSIVE HEART DISEASE WITH HEART FA 03/21/2019 [place], [place] B Ot I25.1 0 ATHSCL HEART DISEASE OF [place] CORONARY 03/21/2019 [place] , [place] B Ot I48.9 1 UNSPECIFIED ATRIAL FIBRILLATION 03/21/2019 [place], [place] B Ot I50.9 HEART FAILURE, UNSPECIFIED 03/21/2019 [place] , [place] B Ot K57.3 0 DVRTCLOS OF LG INT W/O PERFORATION OR AB 03/21/2019 [place], [place] B Ot K63.5 POLYP OF COLON 03/21/2019 [place], [place] B Ot K64.8 OTHER HEMORRHOIDS 03/21/2019 [place], [place] B Ot M19.9 0 UNSPECIFIED OSTEOARTHRITIS, UNSPECIFIED 03/21/2019 [place] , [place] B Ot Z12.1 1 ENCOUNTER FOR SCREENING FOR MALIGNANT NE 03/21/2019 [place] B Ot Z79.0 1 SPIRITUAL COUNSELOR (CURRENT) USE OF ANTICOAGULANT 03/21/2019 [place] B Ot Z79.8 2 SPIRITUAL COUNSELOR (CURRENT) USE OF ASPIRIN 03/21/2019 [place] , [place] B Ot Z79.8 99 OTHER SNF (CURRENT) DRUG THERAPY 03/21/2019 [place] B Ot Z83.3 FAMILY HISTORY OF DIABETES MELLITUS 03/21/2019 [facility] DO, [place] B Ot Z86.7 3 PRSNL HX OF TIA (TIA), AND CEREB INFRC W 03/21/2019 [place], [place] B Ot Z88.5 ALLERGY STATUS TO NARCOTIC AGENT STATUS 03/21/2019 [place], [place] B Ot Z88.8 ALLERGY STATUS TO OTH DRUG/MEDS/BIOL SUB 03/21/2019 [place], [place] B Ot Z90.7 10 ACQUIRED ABSENCE OF BOTH CERVIX AND UTER 03/21/2019 [place] DO, [place] B Ot Z95.0 PRESENCE OF CARDIAC [...] PURE HYPERCHOLESTEROLEMIA, UNSPECIFIED 07/13/2019 ANA, KAI Monique APRN Ot M54.5 LOW BACK PAIN 07/13/2019 VIN TINEO, LORETO Her Ot I48.0 PAROXYSMAL ATRIAL FIBRILLATION 07/14/2019 DEE DEE TINEO, PRINCESS Dao Ot E78. 00 PURE HYPERCHOLESTEROLEMIA, UNSPECIFIED 07/14/2019 ANA, KAI Monique APRN Ot M54.5 LOW BACK PAIN 07/14/2019 VIN TINEO, LORETO Her Ot I48.0 PAROXYSMAL ATRIAL FIBRILLATION 07/15/2019 DEE DEE TINEO, PRINCESS Dao Ot E78. 00 PURE HYPERCHOLESTEROLEMIA, UNSPECIFIED 07/15/2019 ANA, KAI Monique APRN Ot M54.5 LOW BACK PAIN 07/15/2019 VIN TINEO, LORETO Her Ot I48.0 PAROXYSMAL ATRIAL FIBRILLATION 07/15/2019 ROV[place] DO, PRINCESS Deleon Ot I42.9 CARDIOMYOPATHY, UNSPECIFIED 07/15/2019 ROVENSTINE DO, PRINCESS L Ot I48.91 UNSPECIFIED ATRIAL FIBRILLATION 07/15/2019 ROVENSTINE DO, PRINCESS L Ot R00.2 PALPITATIONS 07/15/2019 [place] DO, PRINCESS Adrienne Ot Z79.01 SPIRITUAL COUNSELOR (CURRENT) USE OF ANTICOAGULANT 07/15/2019 [place] DO, PRINCESS Deleon Ot Z86.73 PRSNL HX OF TIA (TIA), AND CEREB INFRC W 07/15/2019 [place] DO, PRINCESS Deleon Ot Z88.5 ALLERGY STATUS TO NARCOTIC AGENT STATUS 07/15/2019 [place] DO, PRINCESS Adrienne Ot Z88.8 ALLERGY STATUS TO OTH DRUG/MEDS/BIOL SUB 07/15/2019 [place] DO, PRINCESS Adrienne Ot Z95.0 PRESENCE OF CARDIAC PACEMAKER 07/15/2019 [place] DO, PRINCESS Deleon Ot Z95.5 PRESENCE OF CORONARY ANGIOPLASTY IMPLANT 07/15/2019 DEE DEE TINEO, PRINCESS Dao Ot E78. 00 PURE HYPERCHOLESTEROLEMIA, UNSPECIFIED 07/15/2019 ANA, KAI Monique APRN Ot M54.5 LOW BACK PAIN 07/15/2019 VIN TINEO, LORETO Her Ot I48.0 PAROXYSMAL ATRIAL FIBRILLATION 07/17/2019 PRINCESS FUNEZ MD Ot E78. 00 PURE HYPERCHOLESTEROLEMIA, UNSPECIFIED 07/17/2019 ANA, KAI Monique APRN Ot M54.5 LOW BACK PAIN 07/17/2019 VIN TINEO, LORETO Her Ot I48.0 PAROXYSMAL ATRIAL FIBRILLATION 07/17/2019 DEE DEE TINEO, PRINCESS Dao Ot E78. 00 PURE HYPERCHOLESTEROLEMIA, UNSPECIFIED 07/17/2019 ANA, KAI Monique APRN Ot M54.5 LOW BACK PAIN 07/17/2019 VIN TINEO, LORETO Her Ot I48.0 PAROXYSMAL ATRIAL FIBRILLATION 07/17/2019 DEE DEE TINEO, PRINCESS Dao Ot E78. 00 PURE HYPERCHOLESTEROLEMIA, UNSPECIFIED 07/17/2019 ANA, KAI Monique APRN Ot M54.5 LOW BACK PAIN 07/17/2019 VIN TINEO, LORETO Her Ot I48.0 PAROXYSMAL ATRIAL FIBRILLATION 07/19/2019 LORETO BANUELOS MD Ot I48.0 PAROXYSMAL ATRIAL FIBRILLATION 07/20/2019 JOSE DELCID MD Ot D50.9 IRON DEFICIENCY ANEMIA, UNSPECIFIED 07/20/2019 JOSE DELCID MD Ot I1 0 ESSENTIAL (PRIMARY) HYPERTENSION 07/20/2019 JOSE DELCID MD Ot I25.10 ATHSCL HEART DISEASE OF [place] CORONARY 07/20/2019 JOSE DELCID MD, Ot I48.20 CHRONIC ATRIAL FIBRILLATION, UNSPECIFIED 07/20/2019 JOSE DELCID MD, Ot I95.1 ORTHOSTATIC HYPOTENSION 07/20/2019 JOSE DELCID MD, Ot R06.02 SHORTNESS OF BREATH 07/20/2019 JOSE DELCID MD, Ot R06.09 OTHER FORMS OF DYSPNEA 07/20/2019 JOSE DELCID MD, Ot Z79.01 SPIRITUAL COUNSELOR (CURRENT) USE OF ANTICOAGULANT 07/20/2019 JOSE DELCID MD, Ot Z88.5 ALLERGY STATUS TO NARCOTIC AGENT STATUS 07/20/2019 JOSE DELCID MD, Ot Z88.8 ALLERGY STATUS TO OTH DRUG/MEDS/BIOL SUB 07/20/2019 JOSE DELCID MD, Ot Z95.5 PRESENCE OF CORONARY ANGIOPLASTY IMPLANT Procedures There is no data. Results Test [...] 7-25 CREATININE 0.63 mg/dL 0.50-0.99 eGFR NON-AFR. ANGUILLAN 97 mL/min/1.73m2 > OR = 60 eGFR [...] TEST NAME: IRON, TIBC AND FERRITIN PANEL [facility] TEST CODE: [id number] [facility] CLIENT CONTACT: ALEX SESAY [facility] REPORT ALWAYS MESSAGE SIGNATURE [facility] COMMENT NR Complete blood count (CBC) with automate d white blood cell (WBC) differential - 07/17/19 10:03 Blood leukocytes automated count (number/volume) 6.6 10*3/uL 4.3-11.0 Blood erythrocytes automated count (number/volume) 1.61 10*6/uL 4.35-5.85 Venous blood hemoglobin measurement (mass/volume) 4.7 g/dL 11.5-16.0 Blood hematocrit (volume fraction) 16 % 35-52 Automated erythrocyte mean corpuscular volume 96 [ foz_us] 80-99 Automated erythrocyte mean corpuscular h emoglobin (mass per erythrocyte) 29 pg 25-34 Automated erythrocyte mean corpuscular h emoglobin concentration measurement (mass/volume) 30 g/dL 32-36 Automated erythrocyte distribution width ratio 16. 5 % 10.0- 14.5 Automated blood platelet count (count/volume) 257 10*3/uL 130-400 Automated blood platelet mean volume measurement 9.6 [foz_us] 7.4-10.4 Automated blood neutrophils/100 leukocytes 82 % 42-75 Automated blood lymphocytes/100 leukocytes 9 % 12-44 Blood monocytes/100 leukocytes 8 % 0-12 Automated blood eosinophils/100 leukocytes 0 % 0-10 Automated blood basophils/100 leukocytes 0 % 0-10 Blood neutrophils automated count (number/volume) 5.4 10*3 1.8-7.8 Blood lymphocytes automated count (number/volume) 0.6 10*3 1.0-4.0 Blood monocytes automated count (number/volume) 0. 5 10*3 0.0-1.0 Automated eosinophil count 0.0 10*3/uL 0 .0-0.3 Automated blood basophil count (count/volume) 0.0 10*3/uL 0.0-0.1 Comprehensive metabolic panel - 07/17/19 10:03 Serum or plasma sodium measurement (moles/volume) 133 mmol/L 135-145 Serum or plasma potassium measurement (moles/volume) 4.6 mmol/L 3.6-5.0 Serum or plasma chloride measurement (moles/volume) 100 mmol/L 98-107 Carbon dioxide 21 mmol/L 21-32 Serum or plasma anion gap determination (moles/volume) 12 mmol/L 5-14 Serum or plasma urea nitrogen measurement (mass/volume ) 9 mg/dL 7-18 Serum or plasma creatinine measurement (mass/volume) 0.59 mg/dL 0.60-1.30 Serum or plasma urea nitrogen/creatinine mass ratio 15 NRG Serum or plasma creatinine measurement w ith calculation of estimated glomerular filtration rate > NRG Serum or plasma glucose measurement (mass/volume) 115 mg/dL 70-105 Serum or plasma calcium measurement (mass/volume) 8.2 mg/dL 8.5-10.1 Serum or plasma total bilirubin measurement (mass/volu me) 0.2 mg/dL 0.1-1.0 Serum or plasma alkaline phosphatase cecilia surement (enzymatic activity/volume) 41 U/L 40-136 Serum or plasma aspartate aminotransfera se measurement (enzymatic activity/volume) 27 U/L 5-34 Serum or plasma alanine aminotransferase measurement (enzymatic activity/volume) 23 U/L 0-55 Serum or plasma protein measurement (mass/volume) 4.9 g/dL 6.4-8.2 Serum or plasma albumin measurement (mass/volume) 3.2 g/dL 3.2-4.5 CALCIUM CORRECTED 8.8 mg/dL 8.5-10.1 TROPONIN I FS - 07/17/19 10:03 TROPONIN I FS < 0.30 <0.30 PROBNP FS - 07/17/19 10:03 PROBNP FS 3739.0 pg/mL <75.0 PT panel in platelet poor plasma by coag ulation assay - 07/17/19 10:03 Prothrombin time (PT) in platelet poor plasma by coagu lation assay 27.8 s 12.2-14.7 INR in platelet poor plasma or blood by coagulation as say 2.6 0.8-1.4 Fibrin D-dimer FEU measurement in platel et poor plasma (mass/volume) - 07/17/19 10:03 Fibrin D-dimer FEU measurement in platelet poor plasma (mass/volume) 0.18 ug/mL 0.00-0.49 Complete urinalysis with reflex to cultu re - 07/17/19 10:55 Urine color determination YELLOW NRG Urine clarity determination CLEAR NR G Urine pH measurement by test strip 7.0 5-9 Specific gravity of urine by test strip 1.010 1.016-1.022 Urine protein assay by test strip, semi-quantitative NEGATIVE NEGATIVE Urine glucose detection by automated test strip NE GATIVE NEGATIVE Erythrocytes detection in urine sediment by light micr oscopy NEGATIVE NEGATIVE Urine ketones detection by automated test strip NE GATIVE NEGATIVE Urine nitrite detection by test strip NEGATIVE NEGATIVE Urine total bilirubin detection by test strip NEGA TIVE NEGATIVE Urine urobilinogen measurement by automated test strip (mass/volume) 0.2 mg/dL < = 1.0 Urine leukocyte esterase detection by dipstick 1+ NEGATIVE Automated urine sediment erythrocyte cou nt by microscopy (number/high power field) NONE NRG Automated urine sediment leukocyte count by microscopy (number/high power field) [HPF] NRG Bacteria detection in urine sediment by light microsco py NEGATIVE NRG Squamous epithelial cells detection in u rine sediment by light microscopy 0-2 NRG Crystals detection in urine sediment by light microsco py NONE NRG Casts detection in urine sediment by light microscopy PRESENT NRG Mucus detection in urine sediment by light microscopy NEGATIVE NRG Complete urinalysis with reflex to culture NO NRG Hyaline casts detection in urine sediment by light jaun roscopy 0-2 NRG Encounters ACCT No. Visit Date/Time Discharge Status Pt. Type Provider Facility Loc./Unit Complaint [id number] 03/07/2019 08:40:00 03/07/2019 23:59: 59 [facility] Outpatient [facility] [id number] 06/20/2019 08:15:00 Document Registration [id number] 06/17/2019 08:40:00 Document Registration [id number] 06/14/2019 15:30:00 Document Registration [id number] 12/08/2018 08:45:00 Document Registration [id number] 07/17/2019 09:43:00 12:22:00 DIS Outpatient JOSE DELCID MD [facility] ER FS SOA,AFIB [id number] 07/15/2019 19:15:00 19:44:00 DIS Emergency ROVENPRINCESS IRIZARRY DO [facility] ER FS CHEST PAIN,HIGH HEART RATE [id number] 07/08/2019 10:17:00 23:59:59 CLS Outpatient VIN TINEO, LORETO Her [facility] RAD PAROXYSMAL ATRI AL FIBRILLATION [id number] 06/17/2019 09:44:00 23:59:59 CLS Outpatient KAI PEREZ APRN [facility] RAD FS LUMB[place] [id number] 03/21/2019 07:44:00 10:50:00 DIS Outpatient VIRGINIA AVELAR DO [facility] ENDO SCREENING [id number] 03/15/2019 12:30:00 14:47:00 DIS Outpatient [place] AVELAR DO [facility] PREOP COLONOSCOPY [id number] 06/19/2018 09:25:00 23:59:59 CLS Outpatient DEE DEE TINEO, PRINCESS Dao [facility] LAB PURE HYPERCHOLESTEROLEM [place] [id number] 03/04/2018 15:00:00 12:20:00 DIS Inpatient PHILLIP JOVEL DO, V [facility] ICU SEIZURE
[2019-08-10] MEDS ORDERED: FURO20TA4 (06:11)
--- NOTE | 2019-08-10 06:12 | ED GI ---
General Chief Complaint: Abdominal/GI Problems Stated Complaint: VOMITING BLOOD Nursing Triage Note: STARTED VOMITING BLOOD AT 0500 THIS AM. JUST GOT DISCHARGED FROM ON THURSDAY FOR AORTIC VALVE REPLACEMENT AND HER GALL BLADDER REMOVED. Sepsis Screen: No Definite Risk Source of Information: Patient, EMS Exam Limitations: No Limitations History of Present Illness Date Seen by Provider: Aug 10, 2019 Time Seen by Provider: 06:00 Initial Comments Patient awoke this morning with nausea and then vomited twice with several large dark clots in her vomit. Recent history of present illness, patient sent home from [facility] 5 days ago after an aortic valve replacement. She had also had a cholecystectomy during this same hospitalization. Patient denies a history of peptic ulcer disease, she has not taken a blood thinner at this time. She denies any abdominal pain, chest pain or shortness of air. She denies fever or chills. However, yesterday she states that she felt generalized body aches and malaise. Allergies and Home Medications Allergies Coded Allergies: codeine (Verified Allergy, Mild, 03/04/18) diphenhydramine (Verified Allergy, Mild, 03/04/18) morphine (Verified Allergy, Mild, 03/04/18) Home Medications Gabapentin 100 Mg Capsule, TID, (Reported) Simvastatin 20 Mg Tablet, 40 MG PO HS, (Reported) Trazodone HCl 100 Mg Tablet, 50 MG PO HS, (Reported) TAKES 1/2 (100MG) TABLET Patient Home Medication List Home Medication List Reviewed: Yes Review of Systems Review of Systems Constitutional: No dizziness, No fever; malaise, weakness EENTM: No Symptoms Reported Respiratory: Denies Cough, Denies Shortness of Air Cardiovascular: Denies Chest Pain, Denies Edema, Denies Lightheadedness, Denies Palpitations Gastrointestinal: See HPI; Denies Abdominal Pain; Nausea, Vomiting, Other (vomiting blood clots) Musculoskeletal: No back pain, No joint pain; muscle pain Skin: No change in color, No lesions, No rash Past Qvbhjpx-Pnogrc-Cchahr Hx Past Med/Social Hx: Reviewed Nursing Past Med/Soc Hx Patient Social History Type Used: Cigarettes Former Smoker, Quit: July 01, 2019 2nd Hand Smoke Exposure: No Recent Foreign Travel: No Contact w/Someone Who Travel: No Recent Infectious Disease Expo: No Recent Hopitalizations: Yes (DISCHARGED FROM LAST THURSDAY) Physical Abuse: No Sexual Abuse: No Mistreated: No Fear: No Immunizations Up To Date Date of Pneumonia Vaccine: Dec 02, 2017 Date of Influenza Vaccine: Dec 02, 2017 Seasonal Allergies Seasonal Allergies: No Past Medical History Surgeries: Yes (AORTIC VALVE REPLACED) Cardiac, Coronary Stent, Gallbladder, Hysterectomy, Oophorectomy, Pacemaker, Valve Replacement Respiratory: No Currently Using CPAP: No Currently Using BIPAP: No Cardiac: Yes (SINUS NODE DYSFUNCTION) Atrial Fibrillation, Coronary Artery Disease, Hypertension, Valvular Heart Disease Neurological: Yes Neuropathy : 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 0.0oz. 57.083418fo; 19.00 BMI Method: General Appearance: no apparent distress, cachetic, thin Neck: supple, normal inspection Respiratory: lungs clear, no respiratory distress Cardiovascular: regular rate, rhythm, no edema, systolic murmur Gastrointestinal: non tender, soft; No distended, No guarding, No rebound Extremities: non-tender, normal inspection, no pedal edema Skin: warm/dry; No cyanosis, No diaphoresis, No jaundice; other (pale) Progress/Results/Core Measures Results/Orders Lab Results Laboratory Tests Test 08/10/19 06:16 08/10/19 07:27 Range/Units White Blood Count 12.3 H 4.3-11.0 10^3/uL Red Blood Count 2.45 L 4.35-5.85 10^6/uL Hemoglobin 7.0 L 11.5-16.0 G/DL Hematocrit 22 L 35-52 % Mean Corpuscular Volume 91 80-99 FL Mean Corpuscular Hemoglobin 29 25-34 PG Mean Corpuscular Hemoglobin Concent 31 L 32-36 G/DL Red Cell Distribution Width 16.3 H 10.0-14.5 % Platelet Count 463 H 130-400 10^3/uL Mean Platelet Volume 9.1 7.4-10.4 FL Neutrophils (%) (Auto) 83 H 42-75 % Lymphocytes (%) (Auto) 6 L 12-44 % Monocytes (%) (Auto) 8 0-12 % Eosinophils (%) (Auto) 2 0-10 % Basophils (%) (Auto) 0 0-10 % Neutrophils # (Auto) 10.2 H 1.8-7.8 X 10^3 Lymphocytes # (Auto) 0.7 L 1.0-4.0 X 10^3 Monocytes # (Auto) 0.9 0.0-1.0 X 10^3 Eosinophils # (Auto) 0.3 0.0-0.3 10^3/uL Basophils # (Auto) 0.0 0.0-0.1 10^3/uL Prothrombin Time 14.6 12.2-14.7 SEC INR Comment 1.1 0.8-1.4 Sodium Level 134 L 135-145 MMOL/L Potassium Level 4.0 3.6-5.0 MMOL/L Chloride Level 101 98-107 MMOL/L Carbon Dioxide Level 22 21-32 MMOL/L Anion Gap 11 5-14 MMOL/L Blood Urea Nitrogen 9 7-18 MG/DL Creatinine 0.65 0.60-1.30 MG/DL Estimat Glomerular Filtration Rate > 60 BUN/Creatinine Ratio 14 Glucose Level 106 H 70-105 MG/DL Calcium Level 8.0 L 8.5-10.1 MG/DL Corrected Calcium 9.1 8.5-10.1 MG/DL Total Bilirubin 0.4 0.1-1.0 MG/DL Aspartate Amino Transf (AST/SGOT) 12 5-34 U/L Alanine Aminotransferase (ALT/SGPT) 10 0-55 U/L Alkaline Phosphatase 78 40-136 U/L Troponin I < 0.30 <0.30 NG/ML Pro-B-Type Natriuretic Peptide 931.6 H <75.0 PG/ML Total Protein 5.1 L 6.4-8.2 GM/DL Albumin 2.6 L 3.2-4.5 GM/DL Lipase 27 8-78 U/L Urine Color YELLOW Urine Clarity SL CLOUDY Urine pH 8.0 5-9 Urine Specific [place] 1.010 L 1.016-1.022 Urine Protein NEGATIVE NEGATIVE Urine Glucose (UA) NEGATIVE NEGATIVE Urine Ketones NEGATIVE NEGATIVE Urine Nitrite NEGATIVE NEGATIVE Urine Bilirubin NEGATIVE NEGATIVE Urine Urobilinogen 0.2 < = 1.0 MG/DL Urine Leukocyte Esterase 1+ H NEGATIVE Urine RBC (Auto) 2+ H NEGATIVE Urine RBC 2-5 H /HPF Urine WBC 10-25 H /HPF Urine Squamous Epithelial Cells >50 H /HPF Urine Crystals NONE /LPF Urine Bacteria FEW H /HPF Urine Casts NONE /LPF Urine Mucus NEGATIVE /LPF Urine Culture Indicated YES My Orders Orders - ROVENSTINE,PRINCESS L DO Lactated Ringers (Lr 1000 Ml Iv Solution (08/10/19 06:15) Pantoprazole Injection (Protonix Injecti (08/10/19 06:45) Lactated Ringers (Lr 1000 Ml Iv Solution (08/10/19 08:30) Ondansetron Injection (Zofran Injectio (08/10/19 09:00) Red Cells Leukocytes Reduced (08/10/19 08:57) Ondansetron Injection (Zofran Injectio (08/10/19 08:56) Ns Iv 500 Ml (Sodium Chloride 0.9%) (08/10/19 09:09) Medications Given in ED Current Medications Medications Dose Ordered Sig/Clara Route Start Time Stop Time Status Last Admin Dose Admin Ondansetron HCl 4 mg ONCE ONCE IVP 08/10/19 09:00 08/10/19 09:01 DC 08/10/19 09:00 4 MG Pantoprazole 40 mg ONCE ONCE IV 08/10/19 06:45 08/10/19 06:48 DC 08/10/19 06:51 40 MG Vital Signs/I&O 08/10/19 05:55 Temp 35.8 Pulse 107 Resp 16 B/P (MAP) 129/84 (99) Pulse Ox 94 O2 Delivery Room Air Blood Pressure Mean: 99 Initial ECG Impression Time: 06:01 Initial ECG Rate: 100 Initial ECG Intervals: Normal Initial ECG Intervals ventricular paced rhythm Departure Impression Primary Impression: Upper gastrointestinal bleed Additional Impressions: Anemia Qualified Codes: D64.9 - Anemia, unspecified Hypotension due to blood loss Disposition: XFER SHT-TRM HOSP Condition: Stable Transfer Transfer Reason: Patient preference Transfer Progress Notes Initially called [facility] and Dr Corona had accepted for transfer to ICU w plans for surgical consult and EGD. Discussed w pt and she wanted to go back to [facility] as she says they will know what's going on with her. She relates a HPI that she had to have 4 units transfused before her recent heart valve replacement. Called [facility] @ [phone] Bliss accepts pt in transfer back to [facility] to the Cardio-thoracic Service. 0830 Still no bed assignment from , called to attempt to expedite transfer as we are unable to give blood (no blood available at this facility). Patients BP is soft w MAP @ 60. 0845 patients pressure 70's systolic, had another episode of hematemesis. Decision to give O neg blood, pt consented. 0854- Dr Nick accepts for transfer to a Med ICU bed 0935- EMS departs for [facility]. O-neg blood transfusing, pt stable, discussed consideration of starting pressor w medic and they will start dopamine (as that's all they carry on their rig). Departure-Patient Inst. Decision time for Depature: 06:13 Referrals: [facility]/K (PCP/Family) Primary Care Physician PRINCESS LENTZ DO Aug 10, 2019 06:11
[2019-08-10] MEDS ORDERED: POTA20TA15 (06:14)
[2019-08-10] MEDS ORDERED: DOFE250C3 (06:14)
[2019-08-10] MEDS ORDERED: TRAM50TA3 (06:14)
[2019-08-10] MEDS ORDERED: FLUO20CA46 (06:14)
[2019-08-10] MEDS ORDERED: GABA-486 (06:14)
[2019-08-10] MEDS ORDERED: PANT40TA3 (06:14)
[2019-08-10] MEDS ORDERED: MTP25TSR (06:14)
[2019-08-10] MEDS ORDERED: LACTATED RINGERS 1,000 ML IV SCH ×2 (06:15→08:30)
[2019-08-10] MEDS ORDERED: MAGN200T8 PO (06:17)
[2019-08-10] MEDS ORDERED: ACET325C7 PO (06:22)
[2019-08-10] MEDS ORDERED: MULT-1021 PO (06:22)
[2019-08-10] MEDS ORDERED: ASPI-983 PO (06:22)
[2019-08-10] MEDS ORDERED: PSYL660P17 PO (06:22)
[2019-08-10] MEDS ORDERED: DICL100G18 TP (06:22)
[2019-08-10] MEDS ORDERED: FERR142T14 PO (06:22)
[2019-08-10] MEDS ORDERED: ONDA8TAB13 PO (06:23)
[2019-08-10] MEDS ORDERED: FLUT9.9S16 NS (06:23)
[2019-08-10 06:25] LABS: BASOPHILS % (AUTO) 0 % (0-10); EOSINOPHILS # (AUTO) 0.3 10^3/uL (0.0-0.3); EOSINOPHILS % (AUTO) 2 % (0-10); HEMATOCRIT 22 % (35-52); LYMPHOCYTES # (AUTO) 0.7 X 10^3 (1.0-4.0); LYMPHOCYTES % (AUTO) 6 % (12-44); MEAN CORPUSCULAR HEMOGLOBIN 29 PG (25-34); MEAN CORPUSCULAR HGB CONC 31 G/DL (32-36); MEAN CORPUSCULAR VOLUME 91 FL (80-99); MEAN PLATELET VOLUME 9.1 FL (7.4-10.4); MONOCYTES # (AUTO) 0.9 X 10^3 (0.0-1.0); MONOCYTES % (AUTO) 8 % (0-12); NEUTROPHILS # (AUTO) 10.2 X 10^3 (1.8-7.8); NEUTROPHILS % (AUTO) 83 % (42-75); PLATELET COUNT 463 10^3/uL (130-400); RED CELL DISTRIBUTION WIDTH 16.3 % (10.0-14.5); WHITE BLOOD COUNT 12.3 10^3/uL (4.3-11.0)
[2019-08-10 06:30] LABS: INR 1.1 (0.8-1.4); PROTHROMBIN TIME PATIENT 14.6 SEC (12.2-14.7)
[2019-08-10] MEDS ORDERED: PANTOPRAZOLE 40 MG (PROTONIX) VIAL IV ONE (06:45)
--- NOTE | 2019-08-10 06:47 | Diagnostic Imaging Report ---
INDICATION: Abdominal pain. Vomiting blood Supine and upright views of the abdomen shows the bowel gas pattern to be within normal limits with no obstruction or perforation evident. No mass or calculus is seen. There is no bony abnormality. IMPRESSION: No abnormality is seen. Dictated by: Dictated on workstation # [id number]
[2019-08-10 06:49] LABS: ALANINE AMINOTRANSFERASE 10 U/L (0-55); ALBUMIN 2.6 GM/DL (3.2-4.5); ALKALINE PHOSPHATASE 78 U/L (40-136); BILIRUBIN,TOTAL 0.4 MG/DL (0.1-1.0); BUN/CREATININE RATIO 14; CARBON DIOXIDE 22 MMOL/L (21-32); CHLORIDE 101 MMOL/L (98-107); CREATININE SERUM 0.65 MG/DL (0.60-1.30); GFR ESTIMATED > 60; GLUCOSE 106 MG/DL (70-105); LIPASE 27 U/L (8-78); SODIUM 134 MMOL/L (135-145); TOTAL PROTEIN 5.1 GM/DL (6.4-8.2)
--- NOTE | 2019-08-10 06:51 | Diagnostic Imaging Report ---
INDICATION: Abdominal pain and vomiting blood. Status post aortic valve surgery. Upright chest shows cardiomegaly with no failure. There is bilateral discoid atelectasis. No infiltrates are seen. There is no significant effusion. There is no pneumothorax. There are changes of prior median sternotomy. A pacemaker is present. IMPRESSION: Mild cardiomegaly. The chest is similar to a study from 07/17/2019. Dictated by: Dictated on workstation # [id number]
[2019-08-10 08:34] LABS: CLARITY,URINE SL CLOUDY; COLOR,URINE YELLOW; GLUCOSE, URINE (UA) NEGATIVE (NEGATIVE); PROTEIN,URINE NEGATIVE (NEGATIVE)
[2019-08-10 08:35] LABS: BACTERIA,URINE FEW /HPF; BILIRUBIN,URINE NEGATIVE (NEGATIVE); KETONES,URINE NEGATIVE (NEGATIVE); LEUKOCYTE ESTERASE ,URINE 1+ (NEGATIVE); NITRITE,URINE NEGATIVE (NEGATIVE); SQUAMOUS EPITHELIAL CELL,UR >50 /HPF
[2019-08-10] MEDS ORDERED: ONDANSETRON 4 MG/2 ML (SDV) Z0FRAN ONE (08:56)
[2019-08-10] MEDS ORDERED: ONDANSETRON 4 MG/2 ML (SDV) Z0FRAN IVP ONE (09:00)
[2019-08-10] MEDS ORDERED: NS IV 500 ML 500 ML ONE (09:09)
[2019-08-10 09:33] VITALS: BP 74/31
[2019-08-10] MEDS ORDERED: NS IV 500 ML 500 ML IV ONE (09:39)
== END 2019-08-10 09:32 | disposition short-term general hospital (02) ==
LOC: EDUNIT# 05:51 → ER FS 05:53
DX: K92.0 Hematemesis (principal); Z95.2 Presence of prosthetic heart valve; Z90.49 Acquired absence of other specified parts of digestive tract; I95.9 Hypotension, unspecified; I25.10 Atherosclerotic heart disease of native coronary artery without angina pectoris; I48.91 Unspecified atrial fibrillation; I10 Essential (primary) hypertension; G62.9 Polyneuropathy, unspecified; K21.9 Gastro-esophageal reflux disease without esophagitis; Z95.5 Presence of coronary angioplasty implant and graft; Z87.891 Personal history of nicotine dependence; Z95.0 Presence of cardiac pacemaker
CPT/HCPCS: 36415; 36430; 71045; 74019; 80053; 81000; 83690; 83880; 84484; 85025; 85610; 86850; 86900; 86901; 86920; 87088; 93005; 96361; 96374; 96375; 99291; P9016

== ENCOUNTER 2019-08-19 04:32 | Emergency (ER) | payer MEDICARE, MEDICAID ==
[~2019-08-19] VITALS: Ht 167.7 cm; Wt 54.9 kg
[~2019-08-19 04:32] MED LIST changes: +ACET325C7 PO; +ASPI-983 PO; +DICL100G18 TP; +DOFE250C3; +FERR142T14 PO; +FLUO20CA46; +FLUT9.9S16 NS; +FURO20TA4; +GABA-486; +MAGN200T8 PO; +MTP25TSR; +MULT-1021 PO; +ONDA8TAB13 PO; +PANT40TA3; +POTA20TA15; +PSYL660P17 PO; +TRAM50TA3
[2019-08-19] MEDS ORDERED: NS IV 500 ML 500 ML IV SCH (04:36)
--- OUTSIDE RECORDS SUMMARY | 2019-08-19 04:38 | XMS REPORT | Continuity of Care Document ---
Author Organization Unknown Address Unknown Phone Unavailable Allergies Active Description Code Type Severity Reaction Onset Reported/Identified Relationship to Patient Clinical Status Yes codeine [id number] Drug Allergy Mild N/A 03/04/2018 Yes diphenhydramine [id number] D rug Allergy Mild N/A 03/04/2018 Yes morphine [id number] Drug Allergy Mild N/A 03/04/2018 Medications There [...] COLLAPSE 03/05/2018 PHILLIP JOVEL DO Ot Z79.01 [employer] (CURRENT) USE OF ANTICOAGULANT 03/05/2018 PHILLIP JOVEL DO Ot Z79.89 9 OTHER [facility] (CURRENT) DRUG THERAPY 03/05/2018 PHILLIP JOVEL DO [...] D12.3 BENIGN NEOPLASM OF TRANSVERSE COLON 03/21/2019 TABMILLSTADT , [place] B Ot D12.4 BENIGN NEOPLASM OF DESCENDING COLON 03/21/2019 TABMILLSTADT , [place] B Ot E78.5 HYPERLIPIDEMIA, UNSPECIFIED 03/21/2019 TABMILLSTADT , [place] B Ot F17.2 10 NICOTINE DEPENDENCE, CIGARETTES, UNCOMPL 03/21/2019 ROSIO MENDIOLA, [place] B Ot I11.0 HYPERTENSIVE HEART DISEASE WITH HEART FA 03/21/2019 TABCHEYENNE MENDIOLA, [place] B Ot I25.1 0 ATHSCL HEART DISEASE OF [place] CORONARY 03/21/2019 TABMILLSTADT , [place] B Ot I48.9 1 UNSPECIFIED ATRIAL FIBRILLATION 03/21/2019 ROSIO MENDIOLA, [place] B Ot I50.9 HEART FAILURE, UNSPECIFIED 03/21/2019 TABMILLSTADT , [place] B Ot K57.3 0 DVRTCLOS OF LG INT W/O PERFORATION OR AB 03/21/2019 ROSIO MENDIOLA, [place] B Ot K63.5 POLYP OF COLON 03/21/2019 ROSIO MENDIOLA, [place] B Ot K64.8 OTHER HEMORRHOIDS 03/21/2019 TABCHEYENNE MENDIOLA, [place] B Ot M19.9 0 UNSPECIFIED OSTEOARTHRITIS, UNSPECIFIED 03/21/2019 TABMILLSTADT , [place] B Ot Z12.1 1 ENCOUNTER FOR SCREENING FOR MALIGNANT NE 03/21/2019 TABCHEYENNE MENDIOLA [place] B Ot Z79.0 1 [employer] (CURRENT) USE OF ANTICOAGULANT 03/21/2019 TABCHEYENNE DO [place] B Ot Z79.8 2 [employer] (CURRENT) USE OF ASPIRIN 03/21/2019 TABCHEYENNE , [place] B Ot Z79.8 99 OTHER [facility] (CURRENT) DRUG THERAPY 03/21/2019 TABCHEYENNE MENDIOLA, [place] B Ot Z83.3 FAMILY HISTORY OF DIABETES MELLITUS 03/21/2019 [facility] DO, [place] B Ot Z86.7 3 PRSNL [...] 07/15/2019 ROVENSTINE DO, PRINCESS Adrienne Ot Z79.01 [employer] (CURRENT) USE OF ANTICOAGULANT 07/15/2019 ROVENSTINE DO, PRINCESS Deleon Ot Z86.73 PRSNL HX OF TIA (TIA), AND CEREB INFRC W 07/15/2019 ROVENSTINE DO, PRINCESS Adrienne Ot Z88.5 ALLERGY STATUS TO NARCOTIC AGENT [...] Her Ot I48.0 PAROXYSMAL ATRIAL FIBRILLATION 07/17/2019 JOSE DELCID MD Ot D50.9 IRON DEFICIENCY ANEMIA, UNSPECIFIED 07/17/2019 JOSE DELCID MD Ot I1 0 ESSENTIAL (PRIMARY) HYPERTENSION 07/17/2019 JOSE DELCID MD Ot I25.10 ATHSCL HEART DISEASE OF [place] CORONARY 07/17/2019 JOSE DELCID MD Ot I48.20 CHRONIC ATRIAL FIBRILLATION, UNSPECIFIED 07/17/2019 JOSE DELCID MD Ot I95.1 ORTHOSTATIC HYPOTENSION 07/17/2019 JOSE DELCID MD Ot R06.02 SHORTNESS OF BREATH 07/17/2019 JOSE DELCID MD Ot R06.09 OTHER FORMS OF DYSPNEA 07/17/2019 JOSE DELCID MD Ot Z79.01 [employer] (CURRENT) USE OF ANTICOAGULANT 07/17/2019 JOSE DELCID MD Ot Z88.5 ALLERGY STATUS TO NARCOTIC AGENT STATUS 07/17/2019 JOSE DELCID MD Ot Z88.8 ALLERGY STATUS TO OTH DRUG/MEDS/BIOL SUB 07/17/2019 JOSE DELCID MD Ot Z95.5 PRESENCE OF CORONARY ANGIOPLASTY IMPLANT 07/19/2019 LOREOT BANUELOS MD Ot I48.0 PAROXYSMAL ATRIAL FIBRILLATION 07/20/2019 JOSE DELCID MD Ot D50.9 IRON DEFICIENCY ANEMIA, UNSPECIFIED 07/20/2019 JOSE DELCID MD Ot I1 0 ESSENTIAL (PRIMARY) HYPERTENSION 07/20/2019 JOSE DELCID MD Ot I25.10 ATHSCL HEART DISEASE OF [place] CORONARY 07/20/2019 JOSE DELCID MD, Ot I48.20 CHRONIC ATRIAL FIBRILLATION, UNSPECIFIED 07/20/2019 JOSE DELCID MD Ot I95.1 ORTHOSTATIC HYPOTENSION 07/20/2019 JOSE DELCID MD Ot R06.02 SHORTNESS OF BREATH 07/20/2019 JOSE DELCID MD Ot R06.09 OTHER FORMS OF DYSPNEA 07/20/2019 JOSE DELCID MD Ot Z79.01 [facility] (CURRENT) USE OF ANTICOAGULANT 07/20/2019 JOSE DELCID MD Ot Z88.5 ALLERGY STATUS TO NARCOTIC AGENT STATUS 07/20/2019 JOSE DELCID MD Ot Z88.8 ALLERGY STATUS TO OTH DRUG/MEDS/BIOL SUB 07/20/2019 JOSE DELCID MD Ot Z95.5 PRESENCE OF CORONARY ANGIOPLASTY IMPLANT 08/10/2019 DEE DEE TINEO, PRINCESS Dao Ot E78. 00 PURE HYPERCHOLESTEROLEMIA, UNSPECIFIED 08/10/2019 KAI PEREZ APRN Ot M54.5 LOW BACK PAIN 08/10/2019 GREINKE MD, LORETO M Ot I48.0 PAROXYSMAL ATRIAL FIBRILLATION 08/10/2019 DEE DEE TINEO, PRINCESS Dao Ot E78. 00 PURE HYPERCHOLESTEROLEMIA, UNSPECIFIED 08/10/2019 ANA, KAI Monique APRN Ot M54.5 LOW BACK PAIN 08/10/2019 VIN TINEO, LORETO Her Ot I48.0 PAROXYSMAL ATRIAL FIBRILLATION 08/10/2019 DEE DEE TINEO, PRINCESS Dao Ot E78. 00 PURE HYPERCHOLESTEROLEMIA, UNSPECIFIED 08/10/2019 ANA, KAI Monique APRN Ot M54.5 LOW BACK PAIN 08/10/2019 VIN TINEO, LORETO Her Ot I48.0 PAROXYSMAL ATRIAL FIBRILLATION 08/10/2019 DEE DEE TINEO, PRINCESS Dao Ot E78. 00 PURE HYPERCHOLESTEROLEMIA, UNSPECIFIED 08/10/2019 ANA, KAI Monique APRN Ot M54.5 LOW BACK PAIN 08/10/2019 VIN TINEO, LORETO Her Ot I48.0 PAROXYSMAL ATRIAL FIBRILLATION 08/11/2019 DEE DEE TINEO, PRINCESS Dao Ot E78. 00 PURE HYPERCHOLESTEROLEMIA, UNSPECIFIED 08/11/2019 ANA, KAI Monique APRN Ot M54.5 LOW BACK PAIN 08/11/2019 VIN TINEO, LORETO Her Ot I48.0 PAROXYSMAL ATRIAL FIBRILLATION 08/17/2019 ROVENSTINE DO, PRINCESS L Ot G62.9 POLYNEUROPATHY, UNSPECIFIED 08/17/2019 ROVENSTINE DO, PRINCESS L Ot I10 ESSENTIAL (PRIMARY) HYPERTENSION 08/17/2019 ROVENSTINE DO, PRINCESS L Ot I25.10 ATHSCL HEART DISEASE OF [place] CORONARY 08/17/2019 ROVENSTINE DO, PRINCESS L Ot I48.91 UNSPECIFIED ATRIAL FIBRILLATION 08/17/2019 ROVENSTINE DO, PRINCESS L Ot I95.9 HYPOTENSION, UNSPECIFIED 08/17/2019 ROVENSTINE DO, PRINCESS L Ot K21.9 GASTRO-ESOPHAGEAL REFLUX DISEASE WITHOUT 08/17/2019 ROVENSTINE DO, PRINCESS L Ot K92.0 HEMATEMESIS 08/17/2019 ROVENSTINE DO, PRINCESS L Ot Z87.891 PERSONAL HISTORY OF NICOTINE DEPENDENCE 08/17/2019 ROVENSTINE DO, PRINCESS L Ot Z90.49 ACQUIRED ABSENCE OF OTHER SPECIFIED PART 08/17/2019 ROVENSTINE DO, PRINCESS L Ot Z95.0 PRESENCE OF CARDIAC PACEMAKER 08/17/2019 ESTEPHANIAPRINCESS TRAVIS DO Ot Z95.2 PRESENCE OF PROSTHETIC HEART VALVE 08/17/2019 [facility] PRINCESS Deleon Ot Z95.5 PRESENCE OF CORONARY [...] 7-25 CREATININE 0.63 mg/dL 0.50-0.99 eGFR NON-AFR. BRITISH 97 mL/min/1.73m2 > OR = 60 eGFR [...] TEST NAME: IRON, TIBC AND FERRITIN PANEL NR TEST CODE: [id number] NR CLIENT CONTACT: ALEX SESAY NR REPORT ALWAYS MESSAGE SIGNATURE NRG COMMENT NRG Complete blood count (CBC) with automate [...] sediment by light jaun roscopy 0-2 NRG Complete blood count (CBC) with automate d white blood cell (WBC) differential - 08/10/19 06:16 Blood leukocytes automated count (number/volume) 12.3 10*3/uL 4.3-11.0 Blood erythrocytes automated count (number/volume) 2.45 10*6/uL 4.35-5.85 Venous blood hemoglobin measurement (mass/volume) 7.0 g/dL 11.5-16.0 Blood hematocrit (volume fraction) 22 % 35-52 Automated erythrocyte mean corpuscular volume 91 [ foz_us] 80-99 Automated erythrocyte mean corpuscular h emoglobin (mass per erythrocyte) 29 pg 25-34 Automated erythrocyte mean corpuscular h emoglobin concentration measurement (mass/volume) 31 g/dL 32-36 Automated erythrocyte distribution width ratio 16. 3 % 10.0- 14.5 Automated blood platelet count (count/volume) 463 10*3/uL 130-400 Automated blood platelet mean volume measurement 9.1 [foz_us] 7.4-10.4 Automated blood neutrophils/100 leukocytes 83 % 42-75 Automated blood lymphocytes/100 leukocytes 6 % 12-44 Blood monocytes/100 leukocytes 8 % 0-12 Automated blood eosinophils/100 leukocytes 2 % 0-10 Automated blood basophils/100 leukocytes 0 % 0-10 Blood neutrophils automated count (number/volume) 10.2 10*3 1.8-7.8 Blood lymphocytes automated count (number/volume) 0.7 10*3 1.0-4.0 Blood monocytes automated count (number/volume) 0. 9 10*3 0.0-1.0 Automated eosinophil count 0.3 10*3/uL 0 .0-0.3 Automated blood basophil count (count/volume) 0.0 10*3/uL 0.0-0.1 PT panel in platelet poor plasma by coag ulation assay - 08/10/19 06:16 Prothrombin time (PT) in platelet poor plasma by coagu lation assay 14.6 s 12.2-14.7 INR in platelet poor plasma or blood by coagulation as say 1.1 0.8-1.4 Comprehensive metabolic panel - 08/10/19 06:16 Serum or plasma sodium measurement (moles/volume) 134 mmol/L 135-145 Serum or plasma potassium measurement (moles/volume) 4.0 mmol/L 3.6-5.0 Serum or plasma chloride measurement (moles/volume) 101 mmol/L 98-107 Carbon dioxide 22 mmol/L 21-32 Serum or plasma anion gap determination (moles/volume) 11 mmol/L 5-14 Serum or plasma urea nitrogen measurement (mass/volume ) 9 mg/dL 7-18 Serum or plasma creatinine measurement (mass/volume) 0.65 mg/dL 0.60-1.30 Serum or plasma urea nitrogen/creatinine mass ratio 14 NRG Serum or plasma creatinine measurement w ith calculation of estimated glomerular filtration rate > NRG Serum or plasma glucose measurement (mass/volume) 106 mg/dL 70-105 Serum or plasma calcium measurement (mass/volume) 8.0 mg/dL 8.5-10.1 Serum or plasma total bilirubin measurement (mass/volu me) 0.4 mg/dL 0.1-1.0 Serum or plasma alkaline phosphatase cecilia surement (enzymatic activity/volume) 78 U/L 40-136 Serum or plasma aspartate aminotransfera se measurement (enzymatic activity/volume) 12 U/L 5-34 Serum or plasma alanine aminotransferase measurement (enzymatic activity/volume) 10 U/L 0-55 Serum or plasma protein measurement (mass/volume) 5.1 g/dL 6.4-8.2 Serum or plasma albumin measurement (mass/volume) 2.6 g/dL 3.2-4.5 CALCIUM CORRECTED 9.1 mg/dL 8.5-10.1 TROPONIN I FS - 08/10/19 06:16 TROPONIN I FS < 0.30 <0.30 PROBNP FS - 08/10/19 06:16 PROBNP FS 931.6 pg/mL <75.0 Lipase - 08/10/19 06:16 Lipase 27 U/L 8-78 RED CELLS LEUKO REDUCED AS1 - 08/10/19 0 6:26 RED CELLS LEUKO REDUCED AS1 P RSMD TRFSD 08/10/19 0900 NRG Blood type T Indirect antibody screen pa reyna - 08/10/19 06:26 WRISTBAND NUMBER [id number] NRG ABO+Rh group AP NRG Blood group antibody screen NEGATIVE NR G Complete urinalysis with reflex to cultu re - 08/10/19 07:27 Urine color determination YELLOW NRG Urine clarity determination SL CLOUDY N RG Urine pH measurement by test strip 8.0 5-9 Specific gravity of urine by test strip 1.010 1.016-1.022 Urine protein assay by test strip, semi-quantitative NEGATIVE NEGATIVE Urine glucose detection by automated test strip NE GATIVE NEGATIVE Erythrocytes detection in urine sediment by light micr oscopy 2+ NEGATIVE Urine ketones detection by automated test strip NE GATIVE NEGATIVE Urine nitrite detection by test strip NEGATIVE NEGATIVE Urine total bilirubin detection by test strip NEGA TIVE NEGATIVE Urine urobilinogen measurement by automated test strip (mass/volume) 0.2 mg/dL < = 1.0 Urine leukocyte esterase detection by dipstick 1+ NEGATIVE Automated urine sediment erythrocyte cou nt by microscopy (number/high power field) [HPF] NRG Automated urine sediment leukocyte count by microscopy (number/high power field) [HPF] NRG Bacteria detection in urine sediment by light microsco py FEW NRG Squamous epithelial cells detection in u rine sediment by light microscopy >50 NRG Crystals detection in urine sediment by light microsco py NONE NRG Casts detection in urine sediment by light microscopy NONE NRG Mucus detection in urine sediment by light microscopy NEGATIVE NRG Complete urinalysis with reflex to culture YES NRG Bacterial urine culture - 08/10/19 07:27 Bacterial urine culture [id number] NRG COLONY COUNT >100,000/ML NRG SUSCEPTIBILITY PREDOMINANT NRG MRSA SCREEN SEE COMMENT NRG Encounters ACCT No. Visit Date/Time Discharge Status Pt. Type Provider Facility Loc./Unit Complaint [id number] 03/07/2019 08:40:00 03/07/2019 23:59: 59 CLS Outpatient [facility] [id number] 06/20/2019 08:15:00 Document Registration [id number] 06/17/2019 08:40:00 Document Registration [id number] 06/14/2019 15:30:00 Document Registration [id number] 12/08/2018 08:45:00 Document Registration [id number] 08/10/2019 05:53:00 09:32:00 DIS Outpatient ROVENSTPRINCESS TRAVIS DO Via [facility] ER FS VOMITING BLOOD [id number] 07/17/2019 09:43:00 12:22:00 DIS Emergency JOSE DELCID MD [facility] ER FS SOA,AFIB [id number] 07/15/2019 19:15:00 19:44:00 DIS Emergency PRINCESS LENTZ DO Via [facility] ER FS CHEST PAIN,HIGH HEART RATE [id number] 07/08/2019 10:17:00 23:59:59 CLS Outpatient VIN TINEO, LORETO Her [facility] RAD PAROXYSMAL ATRI AL FIBRILLATION [id number] 06/17/2019 09:44:00 23:59:59 CLS Outpatient ANAKAI DANIELS K [employer] [facility] RAD FS LUMBAGO [id number] 03/21/2019 07:44:00 10:50:00 DIS Outpatient VIRGINIA AVELAR DO [facility] ENDO SCREENING [id number] 03/15/2019 12:30:00 14:47:00 DIS Outpatient [place]IR[place]IA AVELAR DO Via [facility] PREOP COLONOSCOPY [id number] 06/19/2018 09:25:00 23:59:59 CLS Outpatient DEE DEE TINEO, PRINCESS Dao [facility] LAB PURE HYPERCHOLESTEROLEM [place] [id number] 03/04/2018 15:00:00 12:20:00 DIS Inpatient JOVELDAVID MENDIOLA PHILLIP Yobany ia [facility] ICU SEIZURE
[2019-08-19] MEDS ORDERED: PANTOPRAZOLE 40 MG (PROTONIX) VIAL IV ONE (04:45)
[2019-08-19] MEDS ORDERED: TRANEXAMIC ACID INJECTION 1,000 MG in NS (IVPB) 100 ML IV ONE (04:45)
[2019-08-19] MEDS ORDERED: PANTOPRAZOLE INJECTION 200 MG in NS (IVPB) 100 ML IV SCH (04:45)
[2019-08-19] MEDS ORDERED: TRANEXAMIC ACID INJECTION 1,000 MG in NS (IVPB) 250 ML IV SCH (04:45)
--- NOTE | 2019-08-19 04:45 | ED GI ---
General Stated Complaint: BLEEDING Source of Information: Patient Exam Limitations: No Limitations History of Present Illness Date Seen by Provider: Aug 19, 2019 Time Seen by Provider: 04:31 Initial Comments Patient presents ER by EMS from home with chief complaint of passing large amounts of bloody stool. She said the initial one was dark black and after that was bright red. She has hypertension, shortness of air but no chest pain. Last week she had nausea and vomiting with bright red blood as well as stool and will send [facility] for hypertension after receiving 2 units of O- and she says they discovered ulcers did surgery on her and send her home couple days ago. She denies being on blood thinners. Patient is on metoprolol as well as pantoprazole. Patient is a history of 3 heart valves replaced but no coronary disease. She has congenital heart disease. Patient's about 2 weeks post aortic valve replacement at [facility]. She also had cholecystectomy during that hospitalization. Allergies and Home Medications Allergies Coded Allergies: codeine (Verified Allergy, Mild, 03/04/18) diphenhydramine (Verified Allergy, Mild, 03/04/18) morphine (Verified Allergy, Mild, 03/04/18) Home Medications Gabapentin 100 Mg Capsule, TID, (Reported) Simvastatin 20 Mg Tablet, 40 MG PO HS, (Reported) Trazodone HCl 100 Mg Tablet, 50 MG PO HS, (Reported) TAKES 1/2 (100MG) TABLET Patient Home Medication List Home Medication List Reviewed: Yes Review of Systems Review of Systems Constitutional: No chills, No fever, No malaise; weakness EENTM: No Blurred Vision, No Double Vision Respiratory: Denies Cough; Shortness of Air Cardiovascular: Denies Chest Pain, Denies Edema Gastrointestinal: See HPI; Denies Abdominal Pain; Blood Streaked Stools; Denies Constipated; Diarrhea; Denies Nausea Genitourinary: Denies Burning, Denies Discharge Musculoskeletal: No back pain, No joint pain Skin: No pruritus, No rash Psychiatric/Neurological: Denies Headache, Denies Numbness All Other Systems Reviewed Negative Unless Noted: Yes Past Xevuivy-Cxlwdh-Yrgoex Hx Patient Social History Alcohol Use: Denies Use Recreational Drug Use: No Smoking Status: Former Smoker Type Used: Cigarettes Former Smoker, Quit: July 01, 2019 2nd Hand Smoke Exposure: No Recent Foreign Travel: No Contact w/Someone Who Travel: No Recent Hopitalizations: Yes (DISCHARGED FROM LAST THURSDAY) Immunizations Up To Date Date of Pneumonia Vaccine: Dec 02, 2017 Date of Influenza Vaccine: Dec 02, 2017 Seasonal Allergies Seasonal Allergies: No Past Medical History Surgeries: Yes (AORTIC VALVE REPLACED) Cardiac, Coronary Stent, Gallbladder, Hysterectomy, Oophorectomy, Pacemaker, Valve Replacement Respiratory: No Currently Using CPAP: No Currently Using BIPAP: No Cardiac: Yes (SINUS NODE DYSFUNCTION) Atrial Fibrillation, Coronary Artery Disease, Hypertension, Valvular Heart Disease Neurological: Yes Neuropathy [employer] History: Hysterectomy Genitourinary: No Gastrointestinal: No Gastroesophageal Reflux Musculoskeletal: No Endocrine: No HEENT: No Cancer: No Psychosocial: No Integumentary: No Blood Disorders: Yes (IRON DEFIENCY ANEMIA) Adverse Reaction/Blood Tranf: No Physical Exam Vital Signs Vital Signs - First Documented 08/19/19 08/19/19 04:52 06:42 Temp 36.0 Pulse 85 Resp 16 B/P (MAP) 95/50 (65) Pulse Ox 98 O2 Delivery Room Air Capillary Refill : Height/Weight/BMI Height: 5'6.00" Weight: 126lbs. 0.0oz. 57.093302cr; 19.00 BMI Method: General Appearance: WD/WN, moderate distress HEENT: PERRL/EOMI, normal ENT inspection; No pharynx normal (dry) Neck: full range of motion, supple Respiratory: lungs clear, normal breath sounds, no respiratory distress, no accessory muscle use Cardiovascular: normal peripheral pulses, regular rate, rhythm, no edema Peripheral Pulses: 2+ Radial Pulses (R), 2+ Radial Pulses (L) Gastrointestinal: soft, no organomegaly, abnormal bowel sounds (hyperactive) Extremities: normal range of motion, non-tender, normal inspection, normal capillary refill Neurologic/Psychiatric: no motor/sensory deficits, alert, normal mood/affect, oriented x 3, other (GCS14) Skin: pallor Procedures/Interventions Lumen: triple (7 [place] 16 cm) Central Line Procedure: betadine prep (chlorhexidine prep), sterile drapes applied, sterile dressing applied Position: internal jugular (R) Anesthesia: Lidocaine (1% without epinephrine) Volume Anesthetic (ccs): 3 Complications: none Post Position: sutured, good blood return, position confirmed w/ CXR Site was selected using ultrasound on her right IJ. Consent was obtained verbally after explaining risks, benefits and alternatives to a central line. Patient states she's had them before and she is okay with us doing this. She was cleaned with chlorhexidine prepped and draped in usual sterile fashion and everybody in the room was wearing appropriate personal protective equipment. Skin was infiltrated with 3 cc of 1% lidocaine without epinephrine. Under ultrasound guidance a introducer needle in the kit was used to access her right internal jugular on first attempt. Guidewire was easily passed without ectopy on the monitor A small ashley in the skin was made using the supplied 11 blade scalpel. The needle was removed and a dilator was threaded over the guidewire passed and removed. The central lumen of the previously flushed triple lumen catheter was threaded over the guidewire and into place at 13.5 cm. The guidewire was removed and the central lumen was easily flushed as well as withdrew blood. The triple-lumen 7 [place] catheter was stitched in place 2 different points and a Biopatch was placed. A sterile dressing was placed and patient tolerated procedure well. Progress/Results/Core Measures Results/Orders Lab Results Laboratory Tests Test 08/19/19 04:40 Range/Units White Blood Count 8.0 4.3-11.0 10^3/uL Red Blood Count 1.75 L 4.35-5.85 10^6/uL Hemoglobin 5.1 *L 11.5-16.0 G/DL Hematocrit 17 *L 35-52 % Mean Corpuscular Volume 94 80-99 FL Mean Corpuscular Hemoglobin 29 25-34 PG Mean Corpuscular Hemoglobin Concent 31 L 32-36 G/DL Red Cell Distribution Width 15.9 H 10.0-14.5 % Platelet Count 374 130-400 10^3/uL Mean Platelet Volume 9.2 7.4-10.4 FL Neutrophils (%) (Auto) 84 H 42-75 % Lymphocytes (%) (Auto) 6 L 12-44 % Monocytes (%) (Auto) 8 0-12 % Eosinophils (%) (Auto) 2 0-10 % Basophils (%) (Auto) 0 0-10 % Neutrophils # (Auto) 6.7 1.8-7.8 X 10^3 Lymphocytes # (Auto) 0.5 L 1.0-4.0 X 10^3 Monocytes # (Auto) 0.6 0.0-1.0 X 10^3 Eosinophils # (Auto) 0.2 0.0-0.3 10^3/uL Basophils # (Auto) 0.0 0.0-0.1 10^3/uL Neutrophils % (Manual) 97 % Lymphocytes % (Manual) 2 % Eosinophils % (Manual) 1 % Polychromasia SLIGHT Basophilic Stippling SLIGHT Anisocytosis SLIGHT Sodium Level 135 135-145 MMOL/L Potassium Level 3.5 L 3.6-5.0 MMOL/L Chloride Level 102 98-107 MMOL/L Carbon Dioxide Level 23 21-32 MMOL/L Anion Gap 10 5-14 MMOL/L Blood Urea Nitrogen 17 7-18 MG/DL Creatinine 0.73 0.60-1.30 MG/DL Estimat Glomerular Filtration Rate > 60 BUN/Creatinine Ratio 23 Glucose Level 160 H 70-105 MG/DL Calcium Level 7.8 L 8.5-10.1 MG/DL Corrected Calcium 8.9 8.5-10.1 MG/DL Total Bilirubin 0.3 0.1-1.0 MG/DL Aspartate Amino Transf (AST/SGOT) 12 5-34 U/L Alanine Aminotransferase (ALT/SGPT) 9 0-55 U/L Alkaline Phosphatase 79 40-136 U/L Total Protein 4.4 L 6.4-8.2 GM/DL Albumin 2.6 L 3.2-4.5 GM/DL Lipase 48 8-78 U/L My Orders Orders - FIDENCIO SEO Ns (Ivpb) (Sodium C... W/Pantoprazole In (08/19/19 04:45) Tranexamic Acid Injection (Cyklokapron I (08/19/19 04:45) Ns (Ivpb) (Sodium C... W/Tranexamic Acid (08/19/19 04:45) Cbc With Automated Diff (08/19/19 04:36) Comprehensive Metabolic Panel (08/19/19 04:36) Lipase (08/19/19 04:36) Catheter(Urinary) Insert & Ass 03,15 (08/19/19 04:36) Vital Signs: Special (Order) (08/19/19 04:36) Consent-Obtain Consent For (08/19/19 04:36) Monitor S/S Transfusion Reacti (08/19/19 04:36) Ns Iv 500 Ml (Sodium Chloride 0.9%) (08/19/19 04:36) Type And Screen (08/19/19 04:36) Red Cells Leukocytes Reduced (08/19/19 04:36) Pantoprazole Injection (Protonix Injecti (08/19/19 04:45) Manual Differential (08/19/19 04:40) Chest 1 View Ap/Pa Only (08/19/19 05:36) Norepinephrine 4 Mg/250 Ml (Norepinephri (08/19/19 06:00) Red Cells Leukocytes Reduced (08/19/19 14:52) Medications Given in ED Vital Signs/I&O 08/19/19 08/19/19 04:52 06:42 Temp 36.0 Pulse 85 87 Resp 16 18 B/P (MAP) 95/50 (65) 108/68 Pulse Ox 98 O2 Delivery Room Air Room Air Progress Progress Note #1: Time: 04:52 Progress Note Pantoprazole bolus and drip, TXA, 2 units packed red blood cells O- ordered because of her soft blood pressure with a map of 70 on arrival. She had a liter fluids started and we will give her another half a liter in addition to the blood. She is very pale and weak. We'll get labs and if she is stable we can get a CT. We have already called [facility] because of her ongoing GI bleed and our short supply of blood. Plan to place San catheter. Progress Note #2: Time: 05:42 Progress Note Nursing has communicated the hemoglobin of 5 to [facility] and they are waiting to hear back from the crew leader. The patient's map is 59. We have initiated blood products. We will initiate Levophed to keep her map above 60 as well. Per patient's request we did try and speak to her sister Noni however both times the phone was busy. Chest x-ray has been clouded. Diagnostic Imaging Diagonstic Imaging: Xray Plain Films/CT/US/NM/MRI: chest Comments No pneumothorax. Central catheter line over the right IJ and into this. Vena cava terminating just superior about 1 cm to the right atria. Does not cross the midline. Reviewed: Reviewed by Me Departure Impression Primary Impression: GI bleed Qualified Codes: K92.2 - Gastrointestinal hemorrhage, unspecified Additional Impressions: Hypotension due to hypovolemia Acute blood loss anemia Disposition: 02 XFER SHT-TRM HOSP Condition: Stable Transfer Transfer Reason: Exceeds level of care Time Spoke to Accepting Phy: 17:45 Transfer Progress Notes Accepted to [facility] Transfer Facility: [facility] Method of Transfer: EMS Departure-Patient Inst. Referrals: NO,LOCAL PHYSICIAN (PCP/Family) Primary Care Physician FIDENCIO SEO Aug 19, 2019 04:45
--- NOTE | 2019-08-19 05:09 | NUR ---
TIMEOUT PRIOR TO CENTRAL LINE PLACEMENT.
[2019-08-19 05:22] LABS: HEMOGLOBIN 5.1 G/DL (11.5-16.0); MEAN CORPUSCULAR HEMOGLOBIN 29 PG (25-34)
[2019-08-19 05:23] LABS: BASOPHILS % (AUTO) 0 % (0-10); EOSINOPHILS # (AUTO) 0.2 10^3/uL (0.0-0.3); EOSINOPHILS % (AUTO) 2 % (0-10); HEMATOCRIT 17 % (35-52); LYMPHOCYTES # (AUTO) 0.5 X 10^3 (1.0-4.0); LYMPHOCYTES % (AUTO) 6 % (12-44); MEAN CORPUSCULAR HGB CONC 31 G/DL (32-36); MEAN CORPUSCULAR VOLUME 94 FL (80-99); MEAN PLATELET VOLUME 9.2 FL (7.4-10.4); MONOCYTES # (AUTO) 0.6 X 10^3 (0.0-1.0); MONOCYTES % (AUTO) 8 % (0-12); NEUTROPHILS # (AUTO) 6.7 X 10^3 (1.8-7.8); NEUTROPHILS % (AUTO) 84 % (42-75); PLATELET COUNT 374 10^3/uL (130-400); RED CELL DISTRIBUTION WIDTH 15.9 % (10.0-14.5)
[2019-08-19 05:38] LABS: ALANINE AMINOTRANSFERASE 9 U/L (0-55); ALBUMIN 2.6 GM/DL (3.2-4.5); ALKALINE PHOSPHATASE 79 U/L (40-136); BILIRUBIN,TOTAL 0.3 MG/DL (0.1-1.0); BUN/CREATININE RATIO 23; CALCIUM 7.8 MG/DL (8.5-10.1); CARBON DIOXIDE 23 MMOL/L (21-32); CHLORIDE 102 MMOL/L (98-107); CREATININE SERUM 0.73 MG/DL (0.60-1.30); GFR ESTIMATED > 60; GLUCOSE 160 MG/DL (70-105); LIPASE 48 U/L (8-78); POTASSIUM 3.5 MMOL/L (3.6-5.0); SODIUM 135 MMOL/L (135-145); TOTAL PROTEIN 4.4 GM/DL (6.4-8.2)
[2019-08-19] MEDS ORDERED: NOREPINEPHRINE 4 MG/250 ML 250 ML IV SCH (06:00)
--- NOTE | 2019-08-19 06:06 | Diagnostic Imaging Report ---
INDICATION: IJ catheter placement. COMPARISON: 08/10/2019. FINDINGS: Single view of the chest demonstrates a right IJ catheter with the tip in the SVC right atrial junction. There is no post procedure pneumothorax. Small effusion is seen in left base. The heart is prominent with central vascular congestion. IMPRESSION: No post procedure pneumothorax. Dictated by: Dictated on workstation # [id number]
[2019-08-19 06:42] VITALS: BP 108/68
[2019-08-19 06:54] LABS: EOSINOPHILS % (MANUAL) 1 %; LYMPHOCYTES % (MANUAL) 2 %; NEUTROPHILS % (MANUAL) 97 %; POLYCHROMASIA SLIGHT
[2019-08-19 06:55] LABS: ANISOCYTOSIS SLIGHT
--- NOTE | 2019-08-19 07:00 | NUR ---
REPORT CALLED TO VIVIEN BURDEN.
== END 2019-08-19 06:42 | disposition short-term general hospital (02) ==
LOC: EDUNIT# 04:32 → ER FS 04:34
DX: K92.2 Gastrointestinal hemorrhage, unspecified (principal); I95.89 Other hypotension; E86.1 Hypovolemia; D62 Acute posthemorrhagic anemia; I10 Essential (primary) hypertension; G62.9 Polyneuropathy, unspecified; Z88.5 Allergy status to narcotic agent; Z88.8 Allergy status to other drugs, medicaments and biological substances; Z87.891 Personal history of nicotine dependence; Z95.2 Presence of prosthetic heart valve; Z95.5 Presence of coronary angioplasty implant and graft; Z95.0 Presence of cardiac pacemaker
CPT/HCPCS: 36415; 71045; 80053; 83690; 85007; 85027; 86850; 86900; 86901; 86920; 99285; P9016

== ENCOUNTER → 2019-09-09 | Outpatient (CLI) | payer MEDICARE, MEDICAID ==
[2019-09-09 10:03] LABS: HEMOGLOBIN 8.5 G/DL (11.5-16.0)
== END ==
LOC: LAB 09:35
PROVIDERS: ATTEND Nurse Practitioner Adult Health
DX: D62 Acute posthemorrhagic anemia (principal)
CPT/HCPCS: 36415; 85014; 85018